=== PATIENT | male | born 1950 | race Caucasian/White ===

== ENCOUNTER 2016-04-20 11:32 | Outpatient (CLI) | payer MEDICARE ==
[~2016-04-20] VITALS: Ht 177.8 cm; Wt 90.9 kg
[~2016-04-20 11:32] MED LIST: ACET-141 PO; ASPI81TA3 PO; CARSR60 PO; CYAN500T46 PO; DIVA250T60 PO; EZET10TA3 PO; FER325 PO; FINA5TAB72 PO; FURO40TA4 PO; GABA600T PO; HYDR-902 PO; LANT3I SC; LIRA0.6P SQ; MELA3TAB51 PO; NOVO3I SC; POTA10TA37 PO; ROSU40TA PO; SIN25100 PO; TRAZ50TA18 PO; [UNRECOGNIZED DRUG - CODE] PO
[2016-04-20 11:45] VITALS: BP 120/55; PULSE 78; RESP 20; Ht 177.8 cm; Wt 90.9 kg
--- NOTE | 2016-04-20 12:10 | PN ---
Date/Time of Note Date/Time of Note DATE: 04/20/16 TIME: 12:04 Assessment/Plan Assessment/Plan Assessment/Plan [facility] Progress Note Date of Service: 04/20/16 Today's Impression & Plan: Overall doing well. No major wound problems. No major surgical issues at this time. May need further w/u for constipation (c/o lower abdominal pain). I do not see any surgical issues with regards to post cholecystectomy state and leave w/u for abdominal pain to Dr. Lambert and other colleagues. With above assessment, I've recommended the following for today: 1. F/u with Dr. Lambert 2. F/u with us prn 3. May need further w/u regarding lower abdominal discomfort Thank you again for your great care of this very pleasant patient and wonderful family. If there are any questions, please feel free to call me at [phone]. TOTAL VISIT TIME: 20 minutes of which more than half was spent in [id number] discussion with the patient, possibly including family, as well as coordination of care between multiple physicians and providers. Disclaimer: Inadvertent spelling or grammatical errors are likely due to EHR/ dictation software use and do not reflect on the overall quality of patient care. Updated Clinical Summary: The patient is a very pleasant but unfortunate 65-year-old gentleman with multiple comorbid issues (see above) who was admitted initially with failure to thrive and hyperglycemia but subsequently found to have evidence for cholecystitis. Patient was altered and we could not get consent from him but is able to get consent from a friend of his (family not making decisions for the patient). We also declared emergency consent due to the emergency nature of the clinical condition (discussed with Dr. Lambert). S/p laparoscopic cholecystectomy (modifier 22), lysis of adhesions and abdominal lavage 03/15/16. Drain d/c'd . D/c home 03/21/17. Brief readmission 03/22 - 03/24/16 primarily for pain control. Comorbidity/PHx List: 1. Acute cholecystitis 2. CVA with right hemiplegia 3. CKD stage III 4. diabetes mellitus on insulin, with complication of diabetic neuropathy 5. hypertension 6. dyslipidemia 7. BPH 8. seizure disorder 9. depression 9. psychiatric disorder 10. history of right heel ulcer 11. history of sacral wound in the past 12. anemia of chronic disease 13. Right knee surgery Subjective: No major events or complaints; no major upper/incisional abd pain; + lower abdominal discomfort (last BM 2 days ago); no n/v/d; no sob or cp; + flatus; + BM; minimal activity Objective: Vitals: See below Exam: GENERAL: On exam, the patient was sitting up in a wheelchair; well shaven; appeared to be comfortable and in no acute distress. ABDOMEN: Soft, non-tender and nondistended. Incisions are clean, dry and intact without any obvious evidence of erythema, edema, discharge, or hernia. Surgery drain site clean and well healed. There are no peritoneal signs or guarding. SKIN: Skin appears to be pink and feels warm to touch. NEUROLOGIC: Patient is awake, alert, and follows commands appropriately. Exam/Review of Systems Vital Signs Vitals Vital Signs Date Time Temp Pulse Resp B/P Pulse Ox O2 Delivery O2 Flow Rate FiO2 04/20/16 11:45 97.5 78 20 120/55 96 Room Air FAISAL MARY M.D. Apr 20, 2016 12:10
== END 2016-04-20 16:46 | disposition home or self-care (01) ==
LOC: HPC 11:32
PROVIDERS: ATTEND Transplant Surgery
DX: K81.9 Cholecystitis, unspecified (principal); I67.2 Cerebral atherosclerosis; G81.90 Hemiplegia, unspecified affecting unspecified side; E11.9 Type 2 diabetes mellitus without complications; I12.9 Hypertensive chronic kidney disease with stage 1 through stage 4 chronic kidney disease, or unspecified chronic kidney disease; N18.3 Chronic kidney disease, stage 3 (moderate); E78.5 Hyperlipidemia, unspecified; N40.0 Benign prostatic hyperplasia without lower urinary tract symptoms; G40.909 Epilepsy, unspecified, not intractable, without status epilepticus; F32.9 Major depressive disorder, single episode, unspecified; F99 Mental disorder, not otherwise specified; D64.9 Anemia, unspecified; Z79.4 Long term (current) use of insulin
CPT/HCPCS: G0463

== ENCOUNTER 2016-05-14 10:40 | Inpatient (IN) | payer MEDICARE, OTHER ==
[2016-05-14] VITALS (25 sets, daily range): BP systolic 97–129; BP diastolic 42–63; PULSE 66–87; RESP 9–27; TEMP 98.3; Ht 177.8 cm; Wt 88.3 kg
[~2016-05-14] VITALS: Ht 177.8 cm; Wt 88.3 kg
[~2016-05-14 10:40] MED LIST changes: +FINA5TAB PO; -FINA5TAB72 PO; -ROSU40TA PO; +ROSU40TA35 PO; +[UNRECOGNIZED DRUG - CODE] PO; -[UNRECOGNIZED DRUG - CODE] PO
[2016-05-14] MEDS ORDERED: SOD CHLORIDE 0.9% 1,000 ML IV STA ×2 (10:48→11:40)
[2016-05-14 11:15] LABS: BASOPHIL # 0.1 10^3/ul (0.0-0.1); BASOPHILS % 0.6 % (0.0-2.0); EOSINOPHILS % 0.1 % (0.0-7.0); HEMATOCRIT 28.8 % (42.0-52.0); HEMOGLOBIN 9.8 g/dl (14.0-18.0); LYMPHOCYTES # 0.8 10^3/ul (0.8-2.9); LYMPHOCYTES % 4.5 % (15.0-51.0); MEAN CORPUSCULAR HEMOGLOBIN 29.7 pg (29.0-33.0); MEAN CORPUSCULAR HGB CONC 34.1 g/dl (32.0-37.0); MEAN PLATELET VOLUME 10.1 fl (7.4-10.4); MONOCYTE # 0.8 10^3/ul (0.3-0.9); MONOCYTES % 4.5 % (0.0-11.0); NEUTROPHIL # 15.2 10^3/ul (1.6-7.5); NEUTROPHILS % 90.3 % (39.0-77.0); PLATELET COUNT 261 10^3/UL (140-440); RED BLOOD COUNT 3.31 10^6/ul (4.70-6.10); RED CELL DISTRIBUTION WIDTH 14.7 % (11.5-14.5); UNCORRECTED WBC 16.9 10^3/ul (4.8-10.8); WHITE BLOOD COUNT 16.9 10^3/ul (4.8-10.8)
[2016-05-14 11:19] LABS: POTASSIUM 4.8 mmol/L (3.5-5.1)
[2016-05-14 11:22] LABS: CREATININE 1.86 mg/dl (0.61-1.24)
[2016-05-14 11:23] LABS: CALCIUM 9.3 mg/dl (8.4-10.2); PHOSPHORUS 4.4 mg/dl (2.5-4.9)
[2016-05-14 11:26] LABS: CONDITION 1; LH ANALYZER COMMENTS 1
--- NOTE | 2016-05-14 11:30 | RADRPT ---
PROCEDURE: XR Chest. CLINICAL INDICATION: Hyperglycemia TECHNIQUE: Chest AP portable. COMPARISON: 03/12/2016 FINDINGS: The mediastinal structures are unremarkable. The heart is normal in size and configuration. The pu lmonary vascularity is normal. The lung ruiz are unremarkable. No consolidation is identified. The pleural spaces are unremarkable. There are multiple old healed right rib fractures. IMPRESSION: No active intrathoracic disease. RPTAT: HGDB .Rayshawn Parada MD, MD Date Time Electronically viewed and signed by .Rayshawn Parada MD, on 05/14/2016 11:30 .B/
[2016-05-14] MEDS ORDERED: INSULIN REGULAR, HUMAN 100 UNIT in SOD CHLORIDE 0.9% 99 ML IV STA ×2 (11:40)
[2016-05-14 11:48] LABS: MODE ROOM AIR; MetHgb Venous 0.9 %; Sample Type Blood venous; Venous COHb 0.3 %; Venous Fraction OxyHgb 76.5 %; Venous Total Hemglobin 5.9 g/dl
--- NOTE | 2016-05-14 11:55 | ERA ---
ER Documentation Chief Complaint Date/Time DATE: 05/14/16 TIME: 10:50 Chief Complaint SENT FROM FACILITY FOR EVAL OF HIGH BLOOD SUGAR READING HPI 65-year-old male with history of insulin-dependent diabetes mellitus type 2, CVA with right sided weakness, hypertension, seizure disorder, diabetic neuropathy, BPH, chronic kidney disease sent to the ED from [facility] for evaluation of hyperglycemia. Patient states he is compliant with insulin. Otherwise asymptomatic. Denies chest pain, palpitations, shortness of breath or cough. No abdominal pain N/V/D/C. Denies dysuria or polyuria. No headache, neck or back pain. No fevers or chills. ROS All systems reviewed and are negative except as per history of present illness. Medications Home Meds Reported Medications Ezetimibe* (Zetia*) 10 Mg Tablet, 10 MG PO HS, TAB 03/12/16 Metolazone* (Zaroxolyn*) 2.5 Mg Tab, 2.5 MG PO DAILY, TAB HOLD FOR SBP LESS THAN 110 OR HR LESS THAN 60 03/12/16 Liraglutide (Victoza 2-Devan) 0.6 Mg/0.1 Ml Pen.injctr, 1.2 MG SQ DAILY, SYR 03/12/16 Acetaminophen* (Acetaminophen*) 500 MG Extra Strength Tablet, 500 MG PO BID Y for PAIN AND OR ELEVATED TEMP, TAB 03/12/16 Trazodone Hcl* (Trazodone Hcl*) 50 Mg Tablet, 25 MG PO QHS, #30 TAB 03/12/16 Carbidopa-Levodopa* (Sinemet*) 25-100 Mg Tab, 1 TAB PO QID, TAB 03/12/16 Finasteride* (Proscar*) 5 Mg Tablet, 5 MG PO DAILY, TAB 03/12/16 Potassium Chloride* (K-Dur*) 10 Meq Tab.prt.sr, 30 MEQ PO BID, TAB 03/12/16 Insulin Aspart* (Novolog Insulin Pen*) 100 Unit/Ml Soln, 0-10 SC .SLIDING SCALE AC, EA 03/12/16 Hydrocodone/Acetaminophen ([place] 10-325 Tablet) 1 Each Tablet, 1 EACH PO Q6 Y for SEVERE PAIN LEVEL 7-10, TAB 03/12/16 Gabapentin* (Neurontin*) 600 Mg Tablet, 600 MG PO DAILY, #60 TAB 03/12/16 Melatonin (Melatin) 3 Mg Tablet, 3 MG PO QHS, TAB 03/12/16 Furosemide* (Furosemide*) 40 Mg Tablet, 40 MG PO DAILY, TAB 03/12/16 Insulin Glargine* (Lantus*) 100 Unit/Ml Soln, 60 UNIT SC DAILY, #1 VIAL 03/12/16 Ferrous Sulfate* (Ferrous Sulfate*) 325 Mg Tabec, 325 MG PO BID, TAB 03/12/16 Divalproex Sodium* (Depakote*) 250 Mg Tablet.dr, 250 MG PO BID, TAB 03/12/16 Cyanocobalamin* (Vitamin B12*) 500 Mcg Tab, 500 MCG PO DAILY, TAB 03/12/16 Rosuvastatin Calcium* (Crestor*) 40 Mg Tablet, 40 MG PO QHS, #30 TAB 03/12/16 Diltiazem Hcl* (Cardizem SR*) 60 Mg Capsr, 30 MG PO DAILY, #60 CAP 03/12/16 Aspirin* (Aspirin* Chew) 81 Mg Tab.chew, 81 MG PO DAILY, TAB.CHEW 03/12/16 Allergies Allergies: Coded Allergies: No Known Allergy (Unverified , 03/22/16) PMhx/Soc Reviewed in chart. As be HPI. History of Surgery: Yes (s/p lap sharon) Anesthesia Reaction: No Hx 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 Disorder: No Hx Respiratory Disorders: No Hx Cardiac Disorders: Yes (htn) Hx Psychiatric Problems: Yes (depression) Hx Miscellaneous Medical Probl: Yes (cva-right hemiplegia, seizures,DM) Hx Alcohol Use: No Hx Substance Use: No Hx Tobacco Use: Yes Smoking Status: Current every day smoker FmHx Mother: lung cancer. Lives in a SNF. Physical Exam Vitals Vital Signs Date Time Temp Pulse Resp B/P Pulse Ox O2 Delivery O2 Flow Rate FiO2 05/14/16 11:06 98.0 82 18 108/51 99 Room Air 05/14/16 10:45 98.0 89 18 108/51 99 Physical Exam Const: Alert, NAD Head: Atraumatic Eyes: Normal Conjunctiva ENT: Normal External Ears, Nose and Mouth. Neck: Full range of motion. Nontender. No meningismus. Resp: BS equal and clear to auscultation bilaterally Cardio: Regular rate and rhythm, no murmurs Abd: Soft, non tender, non distended. Normal bowel sounds Skin: No petechiae or rashes Back: No midline or flank tenderness Ext: No cyanosis, or edema Neur: Awake and alert. Right sided weakness. Psych: Normal Mood and Affect. Does not appear anxious or depressed. Result Diagram: 05/15/1641905/15/16419 Results 24 hrs Laboratory Tests Test 05/14/16 10:04 05/14/16 10:48 05/14/16 10:50 05/14/16 11:50 Basophils # 0.110^3/ul Basophils % 0.6% Blood Morphology Comment Eosinophils # 0.010^3/ul Eosinophils % 0.1% Hematocrit 28.8% Hemoglobin 9.8g/dl Lymphocytes # 0.810^3/ul Lymphocytes % 4.5% Mean Corpuscular Hemoglobin 29.7pg Mean Corpuscular Hemoglobin Concent 34.1g/dl Mean Corpuscular Volume 87.0fl Mean Platelet Volume 10.1fl Monocytes # 0.810^3/ul Monocytes % 4.5% Neutrophils # 15.210^3/ul Neutrophils % 90.3% Nucleated Red Blood Cells # 0.010^3/ul Nucleated Red Blood Cells % 0.0/100WBC Platelet Count 09259^3/UL Red Blood Count 3.3110^6/ul Red Cell Distribution Width 14.7% White Blood Count 16.910^3/ul Young Test N/A Anion Gap 28 Arterial Blood Date Drawn 05/14/2016 11:43:45 AM Arterial Blood Gas Puncture Site VENOUS LINE Blood Gas Modality ROOM AIR Blood Gas Notified Time 05/14/2016 11:48:15 AM Blood Gas Notified Whom Monique Blood Gas Specimen Source Blood venous Blood Gas Temperature 37.0C Blood Urea Nitrogen 40mg/dl Calcium Level 9.3mg/dl Carbon Dioxide Level 14mmol/L Carboxyhemoglobin 0.3% Chloride Level 96mmol/L Creatinine 1.86mg/dl FiO2 21.0% Glucose Level 461mg/dl Magnesium Level 2.0mg/dl Phosphorus Level 4.4mg/dl Potassium Level 4.8mmol/L Sodium Level 133mmol/L Troponin I 0.321ng/ml Venous Blood Base Excess -16.5mmol/L Venous Blood HCO3 8.0mmol/L Venous Blood Methemoglobin 0.9% Venous Blood Oxygen Saturation 77.4mmHG Venous Blood Oxyhemoglobin 76.5% Venous Blood Total Hemoglobin 5.9g/dl Venous Blood pCO2 (Temp Corrected) 15.7mmHG Venous Blood pH 7.326 Venous Blood pO2 (Temp Corrected) 45.3mmHG Bedside Glucose 447mg/dL Urine Bilirubin NEGATIVE Urine Clarity CLEAR Urine Color LT. YELLOW Urine Glucose >=1000% Urine Hemoglobin NEGATIVE Urine Ketones 15 Urine Leukocyte Esterase NEGATIVE Urine Nitrite NEGATIVE Urine Specific [place] 1.020 Urine Total Protein NEGATIVE Urine Urobilinogen 0.2 E.U./dL Urine pH 5.0 Current Medications Medications (Trade) Dose Ordered Sig/Vicky Route PRN Reason Start Time Stop Time Status Last Admin Dose Admin Sodium Chloride 1,000 ml @ 1,000 mls/hr Q1H STAT IV 05/14/16 10:48 05/14/16 15:15 DC 05/14/16 11:08 Sodium Chloride 1,000 ml @ 1,000 mls/hr Q1H STAT IV 05/14/16 11:40 05/14/16 15:16 DC 05/14/16 13:23 Insulin Human Regular/Sodium Chloride (Humulin R/NS) 100 ml @ 8 mls/hr TITRATE STAT IV 05/14/16 11:40 05/14/16 16:17 DC 05/14/16 12:30 RHYTHM STRIP INTERPRETATION: Time: 10:15. Sinus rhythm. Ventricular rate 78. No ectopy. Indication: Hyperglycemia. EKG: Time: 12:14. Sinus rhythm. Ventricular rate 76, normal KS and QRS intervals. No acute ST segment elevation or depression. No axis deviation or ectopy. EP Impression: Normal EKG IMAGING: PROCEDURE: XR Chest. CLINICAL INDICATION: Hyperglycemia TECHNIQUE: Chest AP portable. COMPARISON: 03/12/2016 FINDINGS: The mediastinal structures are unremarkable. The heart is normal in size and configuration. The pulmonary vascularity is normal. The lung ruiz are unremarkable. No consolidation is identified. The pleural spaces are unremarkable. There are multiple old healed right rib fractures. IMPRESSION: No active intrathoracic disease. RPTAT: HGDB .Rayshawn Parada MD, Date Time Electronically viewed and signed by .Rayshawn Parada MD, MD on 05/14/2016 11:30 .B/ [ ] Procedures/MDM DOCUMENTS REVIEWED: ED nurse, prior ED, prior records, SNF records. MEDICAL DECISION MAKIN-year-old male with history of insulin-dependent diabetes mellitus type 2, CVA with right sided weakness, hypertension, seizure disorder, diabetic neuropathy, BPH, chronic kidney disease sent to the ED from [facility] for evaluation of hyperglycemia. Patient presents with anion gap metabolic acidosis and hyperglycemia consistent with DKA. VPG feels a pH of 7.36 with BE -16.5. NS 1L bolus follows NS 1L/hour and insulin drip initiated as per protocol. Leukocytosis but no obvious infectious source. Endocrinology consult in in the ED by Dr Smith. Elevated troponin without acute ischemic EKG changes or chest pain of uncertain etiology. May be secondary to renal insufficiency although NSTEMI considered. Aspirin given. Decision regarding heparin administration and a cardiology consult will be deferred to the admitting physician. Admit to ICU for Insulin infusion, hydration, further evaluation and management. Counseled patient regarding diagnosis, diagnostic results and plan for admission. CALLS/CONSULTS: Time 11:50, Dr. Lambert, Recommends admission to ICU. PATIENT CARE TRANSITIONED: Time: 11: 58, Dr. Lambert. CRITICAL CARE NOTE: Treatments/Evaluations: Close monitoring and treatment of unstable vital signs, cardiorespiratory, and neurologic status, while maintaining tight balance of fluid, respiratory, and cardiac interventions. This time includes discussing the case with the patient and the patient's family. This time does not include all procedures stated elsewhere in this record. This time also includes reviewing old records, labs and radiological studies. This time includes examining and re-examining the patient. Additionally, this time also includes arranging care with admitting and consulting physicians. TOTAL CRITICAL CARE TIME: 35 minutes not including other separately reportable procedures. Departure Diagnosis: Primary Impression: Diabetic ketoacidosis associated with type 2 diabetes mellitus Qualified Code: E13.10 - Diabetic ketoacidosis without coma associated with type 2 diabetes mellitus Additional Impressions: Hyperglycemia Hemiplegia and hemiparesis following cerebral infarction affecting right dominant side Chronic kidney disease, stage III (moderate) Essential (primary) hypertension Hyperlipidemia Qualified Code: E78.5 - Hyperlipidemia, unspecified hyperlipidemia type Major depressive disorder, recurrent severe without psychotic features Elevated troponin Condition: Critical EMIGDIO CARVALHO MD May 14, 2016 11:55 (Neurontin) 600 mg DAILY PO 05/15/16 09:00 Acetaminophen/ Hydrocodone Bitart ([place] (10/325)) 1 tab Q6 PRN PO SEVERE PAIN LEVEL 7-10 05/14/16 12:30 Rosuvastatin Calcium (Crestor) 40 mg QHS PO 05/14/16 21:00 UNV Trazodone HCl (Desyrel) 25 mg QHS PO 05/14/16 21:00 UNV Tamsulosin HCl (Flomax) 0.4 mg QHS PO 05/14/16 21:00 Heparin Sodium (Porcine) (Heparin (5000 Units/0.5 ml)) 5,000 unit Q12 SC 05/14/16 12:30 05/14/16 13:23 Diagnostic Test (Pha) (Accucheck) 1 ea Q1H XX 05/14/16 12:30 IV Flush (NS 3 ml) 3 ml PER PROTOCOL IV 05/14/16 12:30 Ondansetron HCl (Zofran Inj) 4 mg Q4 PRN IV n/v 05/14/16 12:30 Acetaminophen (Tylenol Tab) 650 mg Q4H PRN PO pain 05/14/16 12:30 Morphine Sulfate (morphine) 2 mg Q4H PRN IV severe pain 05/14/16 13:00 Aspirin (Aspirin) 325 mg ONCE ONCE PO 05/14/16 14:00 05/14/16 14:01 Dextrose (D50w Syringe) 50 ml Q15M PRN IV For BS 50 or less 05/14/16 14:00 UNV Dextrose 25 ml 25 ml Q15M PRN IV BS between 50-70 05/14/16 14:00 UNV Sodium Chloride 1,000 ml @ 1,000 mls/hr Q1H IV 05/14/16 13:45 05/14/16 14:44 UNV Lactated Ringer's 1,000 ml @ 1,000 mls/hr Q1H IV 05/14/16 14:45 05/14/16 15:44 UNV Potassium Chloride 40 meq/ Sodium Chloride 1,020 ml @ 500 mls/hr Q2H3M IV 05/14/16 15:45 05/14/16 17:44 UNV Insulin Human Regular/Sodium Chloride (Humulin R/NS) 100 ml @ 0 mls/hr DKA PROTOCOL IV 05/14/16 14:00 UNV Diagnostic Test (Pha) (Accucheck) 1 ea Q1H XX 05/14/16 14:00 UNV Miscellaneous Information (* Miscellaneous Pharmacy Order) HYPOGLYCEMIA TREATMENT HYPOGLYCEM PROTOCOL PRN XX Hypoglycemia (BS < 70) 05/14/16 14:00 UNV Insulin Glargine (Lantus) 42 unit QHS SC 05/14/16 21:00 UNV Insulin Aspart (Novolog Insulin Pen) NOVOLOG *MILD* ALGORITHM WITH MEALS BEDTIME SC 05/14/16 18:00 UNV Insulin Aspart (Novolog Insulin Pen) 16 unit WITH MEALS SC 05/14/16 18:00 UNV Miscellaneous Information (* Miscellaneous Pharmacy Order) HYPOGLYCEMIA PROTOCOL w... ONCE ONCE XX 05/14/16 14:00 05/14/16 14:01 UNV Miscellaneous Information (* Miscellaneous Pharmacy Order) Discontinue Glyburide, Glipizide,... ONCE ONCE XX 05/14/16 14:00 05/14/16 14:01 UNV Miscellaneous Information (* Miscellaneous Pharmacy Order) Discontinue all previ... ONCE ONCE XX 05/14/16 14:00 05/14/16 14:01 UNV RHYTHM STRIP INTERPRETATION: Time: 10:15. Sinus rhythm. Ventricular rate 78. No ectopy. Indication: Hyperglycemia. EKG: Time: 12:14. Sinus rhythm. Ventricular rate 76, normal KS and QRS intervals. No acute ST segment elevation or depression. No axis deviation or ectopy. EP Impression: Normal EKG IMAGING: PROCEDURE: XR Chest. CLINICAL INDICATION: Hyperglycemia TECHNIQUE: Chest AP portable. COMPARISON: 03/12/2016 FINDINGS: The mediastinal structures are unremarkable. The heart is normal in size and configuration. The pulmonary vascularity is normal. The lung ruiz are unremarkable. No consolidation is identified. The pleural spaces are unremarkable. There are multiple old healed right rib fractures. IMPRESSION: No active intrathoracic disease. RPTAT: HGDB .Rayshawn Parada MD, MD Date Time Electronically viewed and signed by .Rayshawn Parada MD, on 05/14/2016 11:30 .B/ [ ] Procedures/MDM DOCUMENTS REVIEWED: ED nurse, prior ED, prior records PROCEDURES: [] ED COURSE: [] REEXAMINATION/REEVALUATION: Time:[] MEDICAL DECISION MAKIN-year-old male with history of insulin-dependent diabetes mellitus type 2, CVA with right sided weakness, hypertension, seizure disorder, diabetic neuropathy, BPH, chronic kidney disease sent to the ED from [facility] for evaluation of hyperglycemia. Counseled [patient and family] regarding diagnosis, diagnostic results and plan for admission. CALLS/CONSULTS: Time 11:50, Dr. Lambert, Recommends admission to ICU. PATIENT CARE TRANSITIONED: Time: 11: 58, Dr. Lambert. Departure Diagnosis: Primary Impression: Diabetic ketoacidosis associated with type 2 diabetes mellitus Qualified Code: E13.10 - Diabetic ketoacidosis without coma associated with type 2 diabetes mellitus Additional Impressions: Hyperglycemia Hemiplegia and hemiparesis following cerebral infarction affecting right dominant side Chronic kidney disease, stage III (moderate) Essential (primary) hypertension Hyperlipidemia Qualified Code: E78.5 - Hyperlipidemia, unspecified hyperlipidemia type Major depressive disorder, recurrent severe without psychotic features EMIGDIO CARVALHO MD May 14, 2016 11:55
[2016-05-14 11:59] LABS: ADD UMIC NO; URINE BILIRUBIN (Dip) NEGATIVE (NEGATIVE); URINE BLOOD (Dip) NEGATIVE (NEGATIVE); URINE COLOR LT. YELLOW (YELLOW); URINE GLUCOSE (Dip) >=1000 % (NEGATIVE); URINE KETONES (Dip) 15 (NEGATIVE); URINE LEUKOCYTE ESTERASE (Dip) NEGATIVE (NEGATIVE); URINE NITRITE (Dip) NEGATIVE (NEGATIVE); URINE TOTAL PROTEIN (Dip) NEGATIVE (NEGATIVE); URINE UROBILINOGEN (Dip) 0.2 E.U./dL (0.1-1.0)
[2016-05-14] MEDS ORDERED: NACL 0.9% 3 ML SYG IV SCH (12:30)
[2016-05-14] MEDS: ACCUCHECK XX SCH ×2 (12:30→13:30)
[2016-05-14] MEDS ORDERED: NS + KCL 20 MEQ 1,000 ML IV SCH (12:30)
[2016-05-14] MEDS ORDERED: ACCUCHECK XX SCH ×2 (12:30→16:00)
[2016-05-14] MEDS ORDERED: ACETAMINOPHEN 500 MG TAB PO PRN (12:30)
[2016-05-14] MEDS ORDERED: ACETAMINOPHEN 325 MG TAB PO PRN (12:30)
[2016-05-14] MEDS ORDERED: DEXTROSE 50% 50 ML SYRINGE IV PRN ×6 (12:30→18:30)
[2016-05-14] MEDS ORDERED: ONDANSETRON 4 MG INJ IV PRN (12:30)
[2016-05-14] MEDS ORDERED: INSULIN REGULAR, HUMAN 100 UNIT in SOD CHLORIDE 0.9% 99 ML IV SCH ×4 (12:30→14:00)
--- NOTE | 2016-05-14 13:09 | HP ---
DATE OF ADMISSION: 05/14/2016 REASON FOR ADMISSION: Severe hyperglycemia, DKA, rule out sepsis. HISTORY OF PRESENT ILLNESS: The patient is a 65-year-old male, very well known to me. He has history of diabetes mellitus type 2 on insulin, CVA with right hemiplegia, psychiatric disorder, vascular dementia, hypertension, seizure disorder, vertigo, diabetic neuropathy, BPH, anemia, chronic kidney disease, osteoarthritis, recently admitted to [facility] for cholecystitis. The patient overall is doing well. He does not really watch what he eats, as per nursing staff, the nurse stated that he eats a lot of sweets and does not follow a strict diet. Yesterday I received a call that the patient had episodes of hyperglycemia. I instructed to obtain laboratories, start him on IV fluids and give him insulin, but patient refused fluids and he afterwards refused to go the hospital, which we were able to control his sugars and encourage him to drink fluids. This morning again his glucose level was documented as high and we decided to send him to the hospital and patient finally agreed. Upon arrival to [facility] today, the patient 's glucose level was about 400. He also was noted to have leukocytosis with a white count of 16.9 with a neutrophil count of 90% and glucose documented at 461. Sodium was 133, chloride 96, bicarbonate of 14. He had a gap of 23. ABG was done showed a pH of 7.32, pCO2 low at 15.7, pO2 of 45, bicarbonate of 8. Patient was started on aggressive IV fluid hydration and started on insulin. Patient to be admitted to the intensive care unit with insulin drip and treatment for DKA. Upon evaluation, the patient has no specific complaints. He said he has a wound in his buttocks. I did an exam, I did not see any wound , just redness in the sacral area. The patient otherwise has no complaints. Denies any chest pain or shortness of breath, denies any fever or chills, denies any dysuria, denies any new weaknesses or numbness. Patient overall with good appetite. The patient is admitted for further care. PAST MEDICAL HISTORY: Includes CVA with right hemiplegia, anemia of chronic disease, CKD stage III, diabetes mellitus, diabetic neuropathy, hypertension, dyslipidemia, BPH, seizure disorder, depression, psychiatric disorder, history of right heel ulcer, history of sacral wound in the past, history of carotid stenosis, right-sided 60%, history of noncompliance. The patient is obese. SURGICAL HISTORY: Right knee surgery and cholecystectomy. ALLERGIES: NO KNOWN DRUG ALLERGIES. SOCIAL HISTORY: The patient is . He has no children. Currently resides at [facility]. He is a former smoker. No history of alcohol or illicit drugs. He has a sister and the decision maker is a friend, his name is Jaylan. FAMILY HISTORY: Mother at young age from lung cancer. Father from old age. REVIEW OF SYSTEMS: Limited, see above. The patient currently with no complaints. PHYSICAL EXAMINATION: VITAL SIGNS: Temperature 98, pulse 82, respirations 18, blood pressure 108/51, saturation 99% on room air. GENERAL: The patient has no acute ____, normocephalic, atraumatic. The patient is pale. HEENT: Dry mucous membranes. CARDIOVASCULAR: S1 and S2, regular rhythm. LUNGS: Clear. ABDOMEN: Soft, slightly distended, but there is no ____, negative McBurney, negative Jiang. Abdomen is otherwise soft. EXTREMITIES: There is no clubbing, cyanosis, or edema. The patient with right- sided weakness, as he has right hemiplegia. LABORATORY DATA: White count is 16.9, hemoglobin 9.8, hematocrit 29, platelets of 61, neutrophils 90%, lymphocytes 5%. Chemistry: Sodium 133, potassium 4.9, chloride 96, bicarbonate is low at 14, BUN 40, creatinine 1.86, glucose of 461, calcium 9.6, phosphorus 4.4, magnesium is 2.0. UA essentially negative. ABG as above. Chest x-ray shows no active cardiopulmonary disease. EKG is pending. ASSESSMENT AND PLAN: This is a 65-year-old male with history of cerebrovascular accident, hypertension, parkinsonism, CKD, right hemiplegia, diabetes mellitus who presented with DKA leukocytosis. 1. Diabetic ketoacidosis. The patient will be hydrated aggressively with normal saline with potassium supplements. Follow up BMP. Will consult endocrine as the patient has a history of severe hyperglycemia which is difficult to control. The patient will be admitted to the intensive care unit, will be placed on insulin drip and will monitor electrolytes closely. Check Accu-Chek q.1 hour and will follow. 2. Leukocytosis, currently there is no evidence of infectious process. This may be just reactive in nature. We will follow. 3. Cardiovascular. The patient will be placed on DVT prophylaxis. Check troponins, follow up EKG. 4. Benign prostatic hypertrophy. Continue Proscar and Flomax. Duarte to be placed to monitor urine output in the setting of DKA. 5. History of cerebrovascular accident. Continue statin, aspirin. 6. We will obtain a dietitian consult. 7. We will place the patient in an air mattress bed as he does have sacral redness. Will discuss and inform the power of salon professional regarding patient's condition and plan of care. 7. Anemia. Patient with anemia of chronic disease secondary to chronic kidney disease. Check stool for occult blood for any evidence of bleeding. 8. Psychiatric disorder. Resume all psych medications. 9. The patient will be placed on Protonix for GI prophylaxis. We will monitor condition closely. Dictated By: JENNIFER BONILLA/GILBERT Conf#: [id number] DID#: [id number]
[2016-05-14] MEDS: HEPARIN 5,000 UNIT/0.5 ML SYG SC SCH ×2 (13:23→20:39)
[2016-05-14] MEDS ORDERED: ASPIRIN 325 MG TAB PO ONE (14:00)
[2016-05-14] MEDS: CARBIDOPA/LEVODOPA (25/100) TAB PO SCH ×3 (14:04→20:22)
--- NOTE | 2016-05-14 14:04 | CONS ---
Date/Time of Note Date/Time of Note DATE: 05/14/16 TIME: 13:57 Assessment/Plan Assessment/Plan Problems: (1) Diabetic ketoacidosis associated with type 2 diabetes mellitus Status: Acute Comment: Start insulin drip and IV fluids. Monitor electrolytes. When DKA resolved will resume previous insulin dose that was moderately effective during last consulted admit which was Lantus 42 qhs and Novolog 16 qac. Will follow. Qualifiers: Qualified Code: E13.10 - Diabetic ketoacidosis without coma associated with type 2 diabetes mellitus Consultation Date/Type/Reason Admit Date/Time 05/14/2015 @ 1300 Date of Consultation: May 14, 2016 Type of Consultation: Endocrinology Reason for Consultation DKA Referring Provider: JENNIFER PHILLIPS MD Hx of Present Illness 65 y/o C M w/ h/o T2DM w/ Dneph/Dneuro, HTN, hyperlipidemia, CVA w/ residual R- sided hemiparesis, BPH, CKD stage 3, sz d/o, depression, psych dz, depression, anemia of chronic dz, and decubiti of the heel and pre-sacral region in [facility] until yesterday when his BG at nursing facility was found to be completely out of control. Too high to read. Pt. sent to ER. In ER glucose was in the 400's but pt. found to be in DKA w/ CO2 14 and AG 28, and (+) ketonuria. Pt. c/o wound on his buttock. Pt. admitted to ICU. Endo consulted. Constitutional: no complaints Eyes: no complaints ENT: no complaints Respiratory: no complaints Cardiovascular: no complaints Gastrointestinal: no complaints Genitourinary: no complaints Skin: skin lesions (on buttock) Neurologic: no complaints Past Medical History Medical History: diabetes, high cholesterol, hypertension, renal disease, other (BPH, CVA w/ R sided weakness, psych disease/depression, decubiti on sacral region and heel) Past Surgical History Past Surgical Hx: other (R knee surgery) Family History Significant Family History: cancer (lung, mother) Social History b. [place], college grad, no , pt. claims he cannot remember a career, , no children, lives at [facility] Alcohol Use: none Smoking Status: Former smoker (1 ppd x 2 y) Drug Use: none Exam/Review of Systems Vital Signs Vitals Vital Signs Date Time Temp Pulse Resp B/P Pulse Ox O2 Delivery O2 Flow Rate FiO2 05/14/16 11:06 98.0 82 18 108/51 99 Room Air Exam Constitutional: alert, obese, oriented Psych: nl mood/affect, no complaints Eyes: EOMI, PERRL, nl conjunctiva, nl lids, nl sclera ENMT: mucosa pink and moist, nl external ears & nose Neck: non-tender, supple, No bruits, No masses, No thyromegaly Respiratory: clear to auscultation, normal air movement Cardiovascular: nl pulses, regular rate and rhythm, No edema, No murmurs/extra sounds, No rub Gastrointestinal: bowel sounds, nl liver, spleen, non-tender, soft, No mass, No rebound or guarding Musculoskeletal: nl extremities to inspection Extremities: normal pulses, No clubbing, No cyanosis, No edema 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: 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0 Nucleated Red Blood Cells % 0.0 Platelet Count 261 # Red Blood Count 3.31 L Red Cell Distribution Width 14.7 H White Blood Count 16.9 #H Young Test N/A Anion Gap 28 H Arterial Blood Date Drawn 05/14/2016 11:43:45 AM Arterial Blood Gas Puncture Site VENOUS LINE Blood Gas Modality ROOM AIR Blood Gas Notified Time 05/14/2016 11:48:15 AM Blood Gas Notified Whom Monique Blood Gas Specimen Source Blood venous Blood Gas Temperature 37.0 Blood Urea Nitrogen 40 H Calcium Level 9.3 Carbon Dioxide Level 14 L Carboxyhemoglobin 0.3 Chloride Level 96 L Creatinine 1.86 H FiO2 21.0 Glucose Level 461 *H Magnesium Level 2.0 Phosphorus Level 4.4 Potassium Level 4.8 Sodium Level 133 L Troponin I 0.321 *H Venous Blood Base Excess -16.5 L Venous Blood HCO3 8.0 L Venous Blood Methemoglobin 0.9 Venous Blood Oxygen Saturation 77.4 H Venous Blood Oxyhemoglobin 76.5 Venous Blood Total Hemoglobin 5.9 Venous Blood pCO2 (Temp Corrected) 15.7 L Venous Blood pH 7.326 L Venous Blood pO2 (Temp Corrected) 45.3 H Bedside Glucose 447 *H Urine Bilirubin NEGATIVE Urine Clarity CLEAR Urine Color LT. YELLOW Urine Glucose >=1000 Urine Hemoglobin NEGATIVE Urine Ketones 15 Urine Leukocyte Esterase NEGATIVE Urine Nitrite NEGATIVE Urine Specific [place] 1.020 Urine Total Protein NEGATIVE Urine Urobilinogen 0.2 E.U./dL Urine pH 5.0 Test 05/14/16 12:29 05/14/16 13:37 Bedside Glucose 331 H 206 Medications Medications Current Medications Dextrose (D50w Syringe) 50 ml Q15M PRN IV For BS 50 or less; Start 05/14/16 at 12:30 Dextrose (D50w Syringe) 25 ml Q15M PRN IV BS between 50-70; Start 05/14/16 at 12:30 Diagnostic Test (Pha) 1 ea 1 ea Q1H XX ; Start 05/14/16 at 12:30 Potassium Chloride/Sodium Chloride (NS-KCl 20 Meq) 1,000 ml @ 120 mls/hr Q8H20M IV ; Start 05/14/16 at 12:30 Acetaminophen (Tylenol Tab) 500 mg BID PRN PO PAIN AND OR ELEVATED TEMP; Start 05/14/16 at 12:30 Aspirin (Aspirin) 81 mg DAILY PO ; Start 05/15/16 at 09:00 Carbidopa/Levodopa (Sinemet (25/ 100)) 1 tab QID PO ; Start 05/14/16 at 13:00 Cyanocobalamin (Vitamin B12) 500 mcg DAILY PO ; Start 05/15/16 at 09:00; Status UNV Divalproex Sodium (Depakote) 250 mg BID PO ; Start 05/14/16 at 21:00; Status UNV EZETIMIBE (Zetia) 10 mg HS PO ; Start 05/14/16 at 21:00; Status UNV Finasteride (Proscar) 5 mg DAILY PO ; Start 05/15/16 at 09:00; Status UNV Gabapentin (Neurontin) 600 mg DAILY PO ; Start 05/15/16 at 09:00 Acetaminophen/ Hydrocodone Bitart ([place] (10/325)) 1 tab Q6 PRN PO SEVERE PAIN LEVEL 7-10; Start 05/14/16 at 12:30 Rosuvastatin Calcium (Crestor) 40 mg QHS PO ; Start 05/14/16 at 21:00; Status UNV Trazodone HCl (Desyrel) 25 mg QHS PO ; Start 05/14/16 at 21:00; Status UNV Tamsulosin HCl (Flomax) 0.4 mg QHS PO ; Start 05/14/16 at 21:00 Heparin Sodium (Porcine) (Heparin (5000 Units/0.5 ml)) 5,000 unit Q12 SC Last administered on 05/14/16t 13:23; Admin Dose 5,000 UNIT; Start 05/14/16 at 12:30 Diagnostic Test (Pha) (Accucheck) 1 ea Q1H XX ; Start 05/14/16 at 12:30 Ondansetron HCl (Zofran Inj) 4 mg Q4 PRN IV n/v; Start 05/14/16 at 12:30 Acetaminophen (Tylenol Tab) 650 mg Q4H PRN PO pain; Start 05/14/16 at 12:30 Morphine Sulfate (morphine) 2 mg Q4H PRN IV severe pain; Start 05/14/16 at 13: 00 Aspirin (Aspirin) 325 mg ONCE ONCE PO ; Start 05/14/16 at 14:00; Stop 05/14/16 at 14:01 Dextrose (D50w Syringe) 50 ml Q15M PRN IV For BS 50 or less; Start 05/14/16 at 14:00; Status UNV Dextrose 25 ml 25 ml Q15M PRN IV BS between 50-70; Start 05/14/16 at 14:00; Status UNV Sodium Chloride 1,000 ml @ 1,000 mls/hr Q1H IV ; Start 05/14/16 at 13:45; Stop 05/14/16 at 14:44; Status UNV Lactated Ringer's 1,000 ml @ 1,000 mls/hr Q1H IV ; Start 05/14/16 at 14:45; Stop 05/14/16 at 15:44; Status UNV Potassium Chloride/Sodium Chloride (KCl/NS) 1,020 ml @ 500 mls/hr Q2H3M IV ; Start 05/14/16 at 15:45; Stop 05/14/16 at 17:44; Status UNV Diagnostic Test (Pha) (Accucheck) 1 ea Q1H XX ; Start 05/14/16 at 14:00; Status UNV Insulin Glargine (Lantus) 42 unit QHS SC ; Start 05/14/16 at 21:00; Status UNV Miscellaneous Information (* Miscellaneous Pharmacy Order) HYPOGLYCEMIA PROTOCOL w... ONCE ONCE XX ; Start 05/14/16 at 14:00; Stop 05/14/16 at 14:01; Status UNV Miscellaneous Information (* Miscellaneous Pharmacy Order) Discontinue Glyburide , Glipizide,... ONCE ONCE XX ; Start 05/14/16 at 14:00; Stop 05/14/16 at 14:01 ; Status UNV Miscellaneous Information (* Miscellaneous Pharmacy Order) Discontinue all previ... ONCE ONCE XX ; Start 05/14/16 at 14:00; Stop 05/14/16 at 14:01; Status UNV ALBINO BEVERLY MD May 14, 2016 14:04
[2016-05-14] MEDS ORDERED: SOD CHLORIDE 0.9% 1,000 ML IV SCH (15:17)
[2016-05-14] MEDS ORDERED: DEXTROSE 5%-0.45% NACL 1,000 ML IV SCH (16:00)
[2016-05-14] MEDS ORDERED: LACTATED RINGER'S 1,000 ML IV SCH (16:00)
[2016-05-14] MEDS ORDERED: GLUCAGON 1 MG INJ IM PRN (16:30)
[2016-05-14] MEDS ORDERED: GLUCOSE GEL 15 GRAM TUBE PO PRN ×2 (16:30)
[2016-05-14] MEDS ORDERED: GLUCOSE GEL 15 GRAM TUBE BUCCAL PRN (16:30)
[2016-05-14] MEDS: HYDROCODONE/APAP (10/325) TAB PO PRN (16:37)
[2016-05-14] MEDS ORDERED: POTASSIUM CHLORIDE 40 MEQ in SOD CHLORIDE 0.9% 1,000 ML IV SCH (17:00)
[2016-05-14 17:19] LABS: POTASSIUM 3.8 mmol/L (3.5-5.1)
[2016-05-14 17:21] LABS: CREATININE 1.6 mg/dl (0.61-1.24)
[2016-05-14 17:22] LABS: CALCIUM 8.8 mg/dl (8.4-10.2); MAGNESIUM 2.1 mg/dl (1.7-2.5); PHOSPHORUS 3.7 mg/dl (2.5-4.9)
[2016-05-14] MEDS: morphine 2 MG INJ IV PRN ×2 (18:17→22:58)
[2016-05-14] MEDS: traZODone 50 MG TAB PO SCH (20:21)
[2016-05-14] MEDS: ROSUVASTATIN CALCIUM 40 MG TABLET PO SCH (20:22)
[2016-05-14] MEDS: TAMSULOSIN (SR) 0.4 MG CAP PO SCH (20:22)
[2016-05-14] MEDS: DIVALPROEX (EC) 250 MG TAB PO SCH (20:22)
[2016-05-14] MEDS: EZETIMIBE 10 MG TAB PO SCH (20:22)
[2016-05-14] MEDS: INSULIN ASPART [NOVOLOG] 3 ML PEN SC SCH (20:31)
[2016-05-14] MEDS ORDERED: INSULIN GLARGINE [LANtus] 3 ML PEN SC SCH (21:00)
[2016-05-14 22:53] LABS: CREATININE 1.57 mg/dl (0.61-1.24)
[2016-05-14 22:54] LABS: CALCIUM 8.7 mg/dl (8.4-10.2)
[2016-05-15] VITALS (19 sets, daily range): BP systolic 99–147; BP diastolic 44–88; PULSE 69–82; RESP 10–21
[2016-05-15] MEDS: morphine 2 MG INJ IV PRN ×5 (04:01→22:04)
[2016-05-15 04:47] LABS: ALBUMIN 3.2 g/dl (3.3-4.9); BASOPHILS % 0.5 % (0.0-2.0); EOSINOPHILS # 0.2 10^3/ul (0.0-0.5); EOSINOPHILS % 3.3 % (0.0-7.0); HEMATOCRIT 27.7 % (42.0-52.0); HEMOGLOBIN 9.2 g/dl (14.0-18.0); LYMPHOCYTES # 1.7 10^3/ul (0.8-2.9); LYMPHOCYTES % 23.1 % (15.0-51.0); MEAN CORPUSCULAR HGB CONC 33.2 g/dl (32.0-37.0); MEAN CORPUSCULAR VOLUME 87.3 fl (82.0-101.0); MEAN PLATELET VOLUME 9.8 fl (7.4-10.4); MONOCYTE # 0.5 10^3/ul (0.3-0.9); MONOCYTES % 6.1 % (0.0-11.0); PLATELET COUNT 232 10^3/UL (140-440); RED BLOOD COUNT 3.17 10^6/ul (4.70-6.10); UNCORRECTED WBC 7.5 10^3/ul (4.8-10.8); WHITE BLOOD COUNT 7.5 10^3/ul (4.8-10.8)
[2016-05-15 04:48] LABS: POTASSIUM 4.1 mmol/L (3.5-5.1)
[2016-05-15 04:50] LABS: CREATININE 1.49 mg/dl (0.61-1.24)
[2016-05-15 04:51] LABS: ALBUMIN/GLOBULIN RATIO 1.06; CALCIUM 8.6 mg/dl (8.4-10.2); TOTAL PROTEIN 6.2 g/dl (6.1-8.1)
[2016-05-15 04:53] LABS: PHOSPHORUS 3.6 mg/dl (2.5-4.9)
[2016-05-15 05:18] LABS: CONDITION 1; LH ANALYZER COMMENTS 1
[2016-05-15 05:48] LABS: CHOL/HDL RATIO 3.5 RATIO
[2016-05-15 05:50] LABS: TROPONIN-I 0.017 ng/ml (0.00-0.12)
[2016-05-15 06:08] LABS: THYROID STIMULATING HORMONE 5.99 MIU/L (0.465-4.680)
[2016-05-15] MEDS: INSULIN ASPART [NOVOLOG] 3 ML PEN SC SCH ×7 (07:35→21:12)
[2016-05-15] MEDS: GABAPENTIN 300 MG CAP PO SCH (08:17)
[2016-05-15] MEDS: FINASTERIDE 5 MG TAB PO SCH (08:17)
[2016-05-15] MEDS: CYANOCOBALAMIN 500 MCG TAB PO SCH (08:17)
[2016-05-15] MEDS: DIVALPROEX (EC) 250 MG TAB PO SCH ×2 (08:17→21:02)
[2016-05-15] MEDS: CARBIDOPA/LEVODOPA (25/100) TAB PO SCH ×4 (08:17→21:02)
[2016-05-15] MEDS: ASPIRIN 81 MG TAB PO SCH (08:17)
[2016-05-15] MEDS: HEPARIN 5,000 UNIT/0.5 ML SYG SC SCH ×2 (08:21→21:06)
--- NOTE | 2016-05-15 12:29 | CONS ---
Date/Time of Note Date/Time of Note DATE: 05/15/16 TIME: 12:25 Assessment/Plan Assessment/Plan Problems: (1) Diabetic ketoacidosis associated with type 2 diabetes mellitus Status: Resolved Comment: DKA resolved by the time pt. reached ICU last night. Pt. resumed on previous insulin doses Qualifiers: Diabetes mellitus complication detail: without coma Qualified Code: E13.10 - Diabetic ketoacidosis without coma associated with type 2 diabetes mellitus (2) Type 2 diabetes mellitus with diabetic polyneuropathy Status: Chronic Comment: Pt. awoke this am w/ mild hypoglycemia. This was corrected. Decrease lantus from 42 to 36 tonight. Now w/ minimal appetite and glucose in normal range. Will 1-time decrease insulin from 16 to 6 units. Reevaluate tomorrow. Qualifiers: Diabetes mellitus half-way insulin use: with intermediate manager use Qualified Code : E11.42 - Type 2 diabetes mellitus with diabetic polyneuropathy, with long- term current use of insulin Consultation Date/Type/Reason Admit Date/Time May 14, 2016 at 12:27 Initial Consult Date 05/14/16 Type of Consultation: Endocrinology Reason for Consultation DKA Referring Provider: JENNIFER PHILLIPS MD 24 HR Interval Summary Constitutional: improved, no complaints Detailed Summary Respiratory: no complaints Cardiovascular: no complaints Gastrointestinal: no complaints Genitourinary: no complaints Musculoskeletal: no complaints Skin: no complaints Neurologic: no complaints Psychological: anxiety (reports he wakes up at 0500 screaming and cursing; doesn't like it and is anxious about it. ) Exam/Review of Systems Vital Signs Vitals VS - Last 72 Hours, by Label Date Time Temp Pulse Resp B/P Pulse Ox O2 Delivery O2 Flow Rate FiO2 05/15/16 10:58 97.7 75 17 135/60 98 05/15/16 09:00 70 12 133/57 97 Room Air 05/15/16 08:41 71 05/15/16 08:00 98.3 70 11 133/72 99 Room Air 05/15/16 07:00 73 10 132/58 98 Room Air 05/15/16 06:30 72 15 131/56 96 05/15/16 06:00 72 13 126/53 98 Room Air 05/15/16 05:30 69 14 121/59 96 05/15/16 05:00 80 13 129/57 99 Room Air 05/15/16 04:30 69 15 117/57 98 05/15/16 04:00 74 05/15/16 04:00 98.2 78 21 99/88 98 Room Air 05/15/16 04:00 74 05/15/16 03:30 71 16 111/45 97 05/15/16 03:00 74 16 101/44 95 Room Air 05/15/16 02:00 82 19 140/57 95 Room Air 05/15/16 01:30 74 14 112/61 99 05/15/16 01:00 81 16 123/65 96 Room Air 05/15/16 01:00 81 16 123/65 96 05/15/16 00:30 75 15 121/59 97 05/15/16 00:00 75 05/15/16 00:00 97.9 74 15 105/61 98 Room Air 05/15/16 00:00 70 05/14/16 23:30 74 19 111/55 97 05/14/16 23:00 77 14 117/51 100 Room Air 05/14/16 22:30 80 15 122/47 98 05/14/16 22:00 87 17 122/52 98 Room Air 05/14/16 21:30 87 15 104/48 99 05/14/16 20:30 87 17 129/63 100 05/14/16 20:00 98.5 77 11 116/42 99 Room Air 05/14/16 20:00 70 05/14/16 20:00 77 05/14/16 19:30 74 11 110/50 97 05/14/16 19:00 69 111/50 98 Room Air 05/14/16 18:45 70 16 98 05/14/16 18:30 66 12 109/52 97 Room Air 05/14/16 18:15 67 9 100 05/14/16 18:00 72 15 99 Room Air 05/14/16 17:45 70 18 117/47 100 05/14/16 17:30 118/54 100 05/14/16 17:15 74 111/43 94 05/14/16 17:00 71 22 100/45 97 Room Air 05/14/16 16:45 73 112/46 100 05/14/16 16:30 71 97/45 100 05/14/16 16:15 77 108/50 96 05/14/16 16:00 72 24 102/46 98 Room Air 05/14/16 16:00 72 05/14/16 15:45 79 126/62 100 05/14/16 15:30 97.8 73 110/62 100 Room Air 05/14/16 15:15 74 05/14/16 15:15 72 27 100 05/14/16 13:05 98.3 79 111/63 99 Room Air 05/14/16 11:06 98.0 82 18 108/51 99 Room Air 05/14/16 10:45 98.0 89 18 108/51 99 Vital Signs Date Time Temp Pulse Resp B/P Pulse Ox O2 Delivery O2 Flow Rate FiO2 05/15/16 10:58 97.7 75 17 135/60 98 05/15/16 09:00 Room Air Intake and Output 05/14/16 05/14/16 05/15/16 15:00 23:00 07:00 Intake Total 270 ml Output Total 750 ml 600 ml Balance -480 ml -600 ml Exam Constitutional: alert, obese, oriented Psych: nl mood/affect, no complaints Respiratory: clear to auscultation, normal air movement Cardiovascular: nl pulses, regular rate and rhythm, No edema, No murmurs/extra sounds, No rub Gastrointestinal: bowel sounds, nl liver, spleen, non-tender, soft, No mass, No rebound or guarding Musculoskeletal: nl extremities to inspection Extremities: normal pulses, No clubbing, No cyanosis, No edema 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: 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, nl mental status, nl speech, nl strength, other (pill-rolling tremor R hand) Additional Comments Bedside Glucose - 72 Hours Test 05/14/16 10:50 05/14/16 12:29 05/14/16 13:37 05/14/16 14:39 Bedside Glucose 447mg/dL (70-220) *H 331mg/dL (70-220) H 206mg/dL (70-220) 143mg/dL (70-220) Test 05/14/16 15:41 05/14/16 16:39 05/14/16 17:48 05/14/16 18:19 Bedside Glucose 83mg/dL (70-220) 71mg/dL (70-220) 45mg/dL (70-220) *L 129mg/dL (70-220) Test 05/14/16 20:30 05/15/16 04:00 05/15/16 07:47 05/15/16 11:46 Bedside Glucose 130mg/dL (70-220) 119mg/dL (70-220) 68mg/dL (70-220) L 92mg/dL (70-220) Results Result Diagram: 05/15/16 0420 05/15/16 0420 Results 24 hrs Laboratory Tests Test 05/14/16 12:29 05/14/16 13:37 05/14/16 14:39 05/14/16 15:41 Bedside Glucose 331 H 206 143 83 Test 05/14/16 16:39 05/14/16 16:40 05/14/16 17:48 05/14/16 18:19 Bedside Glucose 71 45 *L 129 Anion Gap 16 # Blood Urea Nitrogen 38 H Calcium Level 8.8 Carbon Dioxide Level 26 # Chloride Level 103 Creatinine 1.60 H Glucose Level 71 # Hemoglobin A1c 7.7 H Magnesium Level 2.1 Phosphorus Level 3.7 Potassium Level 3.8 Sodium Level 141 Test 05/14/16 20:30 05/14/16 22:20 05/15/16 04:00 05/15/16 04:20 Bedside Glucose 130 119 Anion Gap 18 H 16 Blood Urea Nitrogen 36 H 33 H Calcium Level 8.7 8.6 Carbon Dioxide Level 22 26 Chloride Level 103 105 Creatinine 1.57 H 1.49 H Glucose Level 211 # 110 # Potassium Level 4.0 4.1 Sodium Level 139 143 Alanine Aminotransferase (ALT/SGPT) 48 Albumin 3.2 L Albumin/Globulin Ratio 1.06 Alkaline Phosphatase 153 H Aspartate Amino Transf (AST/SGOT) 124 H Basophils # 0.0 Basophils % 0.5 Blood Morphology Comment Cholesterol Level 134 Cholesterol/HDL Ratio 3.5 Direct Bilirubin 0.00 Eosinophils # 0.2 Eosinophils % 3.3 Globulin 3.00 HDL Cholesterol 38 Hematocrit 27.7 L Hemoglobin 9.2 L Hemoglobin A1c 7.6 H Indirect Bilirubin 0.0 LDL Cholesterol, Calculated 70 Lactic Acid Level 2.6 H Lipase 31 Lymphocytes # 1.7 Lymphocytes % 23.1 Magnesium Level 2.0 Mean Corpuscular Hemoglobin 29.0 Mean Corpuscular Hemoglobin Concent 33.2 Mean Corpuscular Volume 87.3 Mean Platelet Volume 9.8 Monocytes # 0.5 Monocytes % 6.1 Neutrophils # 5.0 Neutrophils % 67.0 Nucleated Red Blood Cells # 0.0 Nucleated Red Blood Cells % 0.0 Phosphorus Level 3.6 Platelet Count 232 Red Blood Count 3.17 L Red Cell Distribution Width 15.0 H Thyroid Stimulating Hormone (TSH) 5.990 H Total Bilirubin 0.0 L Total Protein 6.2 Triglycerides Level 128 Troponin I 0.017 White Blood Count 7.5 # Test 05/15/16 07:47 05/15/16 11:46 Bedside Glucose 68 L 92 Medications Medications Current Medications Acetaminophen (Tylenol Tab) 500 mg BID PRN PO PAIN AND OR ELEVATED TEMP; Start 05/14/16 at 12:30 Aspirin (Aspirin) 81 mg DAILY PO Last administered on 05/15/16 08:17; Admin Dose 81 MG; Start 05/15/16 at 09:00 Carbidopa/Levodopa (Sinemet (25/ 100)) 1 tab QID PO Last administered on 12:21; Admin Dose 1 TAB; Start 05/14/16 at 13:00 Cyanocobalamin (Vitamin B12) 500 mcg DAILY PO Last administered on 05/15/16 08 :17; Admin Dose 500 MCG; Start 05/15/16 at 09:00 Divalproex Sodium (Depakote) 250 mg BID PO Last administered on 05/15/16 08:17 ; Admin Dose 250 MG; Start 05/14/16 at 21:00 EZETIMIBE (Zetia) 10 mg HS PO Last administered on 05/14/16 20:22; Admin Dose 10 MG; Start 05/14/16 at 21:00 Finasteride (Proscar) 5 mg DAILY PO Last administered on 05/15/16 08:17; Admin Dose 5 MG; Start 05/15/16 at 09:00 Gabapentin (Neurontin) 600 mg DAILY PO Last administered on 05/15/16 08:17; Admin Dose 600 MG; Start 05/15/16 at 09:00 Acetaminophen/ Hydrocodone Bitart (Edroy (10325)) 1 tab Q6 PRN PO SEVERE PAIN LEVEL 7-10 Last administered on 05/14/16 16:37; Admin Dose 1 TAB; Start at 12:30 Rosuvastatin Calcium (Crestor) 40 mg QHS PO Last administered on 05/14/16 20: 22; Admin Dose 40 MG; Start 05/14/16 at 21:00 Trazodone HCl (Desyrel) 25 mg QHS PO Last administered on 05/14/16 20:21; Admin Dose 25 MG; Start 05/14/16 at 21:00 Tamsulosin HCl (Flomax) 0.4 mg QHS PO Last administered on 05/14/16 20:22; Admin Dose 0.4 MG; Start 05/14/16 at 21:00 Heparin Sodium (Porcine) (Heparin (5000 Units/0.5 ml)) 5,000 unit Q12 SC Last administered on 05/15/16 08:21; Admin Dose 5,000 UNIT; Start 05/14/16 at 12:30 Ondansetron HCl (Zofran Inj) 4 mg Q4 PRN IV n/v; Start 05/14/16 at 12:30 Acetaminophen (Tylenol Tab) 650 mg Q4H PRN PO pain; Start 05/14/16 at 12:30 Morphine Sulfate (morphine) 2 mg Q4H PRN IV severe pain Last administered on 08:25; Admin Dose 2 MG; Start 05/14/16 at 13:00 Miscellaneous Information 1 ea NOTE XX ; Start 05/14/16 at 16:30 Glucose (Glutose) 15 gm Q15M PRN PO DECREASED GLUCOSE; Start 05/14/16 at 16:30 Glucose (Glutose) 22.5 gm Q15M PRN PO DECREASED GLUCOSE; Start 05/14/16 at 16: 30 Glucagon (Glucagen) 1 mg Q15M PRN IM DECREASED GLUCOSE; Start 05/14/16 at 16:30 Glucose (Glutose) 15 gm Q15M PRN BUCCAL DECREASED GLUCOSE; Start 05/14/16 at 16 :30 Dextrose (D50w Syringe) 25 ml Q15M PRN IV DECREASED GLUCOSE; Start 05/14/16 at 18:30 Dextrose (D50w Syringe) 50 ml Q15M PRN IV DECREASED GLUCOSE; Start 05/14/16 at 18:30 Insulin Glargine (Lantus) 36 unit QHS SC ; Start 05/15/16 at 21:00 Insulin Aspart (Novolog Insulin Pen) 6 unit ONCE ONCE SC Last administered on 05/15/16 12:20; Admin Dose 6 UNIT; Start 05/15/16 at 12:30; Stop 05/15/16 at 12 :31 ALBINO BEVERLY MD May 15, 2016 12:29
[2016-05-15] MEDS ORDERED: INSULIN ASPART [NOVOLOG] 3 ML PEN SC ONE ×2 (12:30→17:30)
--- NOTE | 2016-05-15 17:51 | PN ---
DATE: 05/15/2016 SUBJECTIVE: The patient was briefly in the intensive care unit, as he was now off the insulin drip. I appreciate Dr. Griggs's assistance with management of patient's DKA and diabetes management roland hyman. Case discussed. The patient was transferred to medical/surgical floor. Appetite is not grea t. I did discuss with nursing staff. I encouraged the patient to eat his meals. PHYSICAL EXAMINATION: VITAL SIGNS: Temperature 97.7, pulse 75, respirations 17, blood pressure 125/60, saturation 98% on room air. GENERAL: No acute distress. HEENT: Normocephalic, atraumatic. The patient is pale. CARDIOVASCULAR: S1, S2. Regular rate and rhythm. LUNGS: Clear. ABDOMEN: Soft, overweight. EXTREMITIES: No clubbing, cyanosis, or edema. NEUROLOGIC: The patient with right-sided weakness. LABORATORY DATA: Today show a normal white count of 7.5, hemoglobin 9.2, hematocrit 28, platelet co unt 32, neutrophils 67%, leukocytes 23%. Chemistry: Sodium is 143, potassium 4.1, chloride 105, bi carbonate 26, BUN is 33, creatinine 1.49, glucose 110. Hemoglobin A1c 7.6. AST 124, ALT 48, alkali ne phosphatase 153, slightly elevated. The patient clinically has no abdominal pain. Lactic acid w as slightly high at 2.6. Glucose levels are as follows 92, 68, 119, 130, 129. MEDICATIONS: Include the followin. Lantus 36 units at night. 2. Insulin aspart 6 units x1. 3. Aspirin 81 mg daily. 4. Vitamin B12 at 500 mcg daily. 5. Proscar 5 mg daily. 6. Gabapentin 600 daily. 7. Insulin aspart q.a.c. meals. 8. Depakote 250 b.i.d. 9. Zetia 10 mg at bedtime. 10. ____ mg at bedtime. 11. Trazodone 25 at bedtime. 12. Flomax 0.4 at bedtime. 13. Insulin aspart per sliding scale. 14. Hypoglycemia protocol. 15. Sinemet 25/100 4 times daily. 16. Morphine p.r.n. 17. Tylenol p.r.n. 18. [place] p.r.n. 19. Heparin 5000 units subq q.12h. 20. Zofran p.r.n. ASSESSMENT AND PLAN: This is an unfortunate 65-year-old male with history of cerebrovascu lar accident, hypertension, parkinsonism, chronic kidney disease, right hemiplegia, diabetes mellitu s who presented with diabetic ketoacidosis and leukocytosis. 1. Diabetic ketoacidosis. Anion gap closed, status post briefly on insulin drip. Was on IV fluid hydration, now off. Continue with current subcutaneous insulin per Dr. Griggs. All medications pe r Dr. Griggs as well. 2. Leukocytosis, likely stress reaction. No evidence of infectious process. The patient is afebri le. 3. Elevated LFTs. Continue to monitor. The patient with no abdominal pain. The patient with rece nt cholecystectomy. May consider ordering a liver ultrasound. 4. Benign prostatic hypertrophy on Proscar and Flomax. Monitor urine output. 5. History of cerebrovascular accident. Continue statin and aspirin. LDL is 70, which is at goal. Continue the same. 6. Anemia. The patient with anemia of chronic disease secondary to chronic kidney disease. No nee d for transfusion. 7. Psychiatric disorder. Resume all psych medications. 8. Monitor glucose level until tomorrow and hopefully we can discharge him tomorrow. I tried to ca ll the sister, Penelope, but voice message cannot accept any messages anymore. 9. I have contacted Jaylan, who is the power of claims attorney. He is aware of the patient's condition. 10. Will monitor him 1 more day to adjust his insulin and diabetic regimen with discharge planning for the a.m. We will follow. Dictated By: JENNIFER BONILLA/GILBERT Conf#: [id number] DID#: [id number]
[2016-05-15] MEDS: HYDROCODONE/APAP (10/325) TAB PO PRN (20:58)
[2016-05-15] MEDS ORDERED: INSULIN GLARGINE [LANtus] 3 ML PEN SC SCH (21:00)
[2016-05-15] MEDS: ROSUVASTATIN CALCIUM 40 MG TABLET PO SCH (21:01)
[2016-05-15] MEDS: TAMSULOSIN (SR) 0.4 MG CAP PO SCH (21:02)
[2016-05-15] MEDS: traZODone 50 MG TAB PO SCH (21:02)
[2016-05-15] MEDS: EZETIMIBE 10 MG TAB PO SCH (23:08)
[2016-05-16] MEDS: morphine 2 MG INJ IV PRN ×2 (02:13→09:17)
[2016-05-16 05:14] LABS: BASOPHILS % 0.5 % (0.0-2.0); EOSINOPHILS # 0.1 10^3/ul (0.0-0.5); EOSINOPHILS % 1.7 % (0.0-7.0); LYMPHOCYTES # 0.9 10^3/ul (0.8-2.9); LYMPHOCYTES % 14.6 % (15.0-51.0); MEAN CORPUSCULAR HEMOGLOBIN 29.4 pg (29.0-33.0); MEAN CORPUSCULAR HGB CONC 33.4 g/dl (32.0-37.0); MEAN PLATELET VOLUME 9.4 fl (7.4-10.4); MONOCYTE # 0.4 10^3/ul (0.3-0.9); MONOCYTES % 6.4 % (0.0-11.0); NEUTROPHIL # 4.9 10^3/ul (1.6-7.5); NEUTROPHILS % 76.8 % (39.0-77.0); PLATELET COUNT 216 10^3/UL (140-440); RED BLOOD COUNT 3.41 10^6/ul (4.70-6.10); RED CELL DISTRIBUTION WIDTH 14.7 % (11.5-14.5); UNCORRECTED WBC 6.4 10^3/ul (4.8-10.8); WHITE BLOOD COUNT 6.4 10^3/ul (4.8-10.8)
[2016-05-16 05:38] LABS: POTASSIUM 4.4 mmol/L (3.5-5.1)
[2016-05-16 05:39] LABS: PHOSPHORUS 3.5 mg/dl (2.5-4.9)
[2016-05-16 05:41] LABS: CREATININE 1.12 mg/dl (0.61-1.24)
[2016-05-16 05:42] LABS: CALCIUM 9.1 mg/dl (8.4-10.2)
[2016-05-16 06:07] LABS: CONDITION 1; LH ANALYZER COMMENTS 1
[2016-05-16 06:34] LABS: ALBUMIN 3.3 g/dl (3.3-4.9)
[2016-05-16 06:37] LABS: BILIRUBIN,INDIRECT 0.1 mg/dl (0-1.1); BILIRUBIN,TOTAL 0.1 mg/dl (0.2-1.3); TOTAL PROTEIN 6.4 g/dl (6.1-8.1)
[2016-05-16] MEDS: INSULIN ASPART [NOVOLOG] 3 ML PEN SC SCH ×7 (07:35→21:31)
[2016-05-16 07:54] VITALS: BP 146/65; RESP 17
[2016-05-16] MEDS: GABAPENTIN 300 MG CAP PO SCH (09:05)
[2016-05-16] MEDS: FINASTERIDE 5 MG TAB PO SCH (09:05)
[2016-05-16] MEDS: ASPIRIN 81 MG TAB PO SCH (09:05)
[2016-05-16] MEDS: DIVALPROEX (EC) 250 MG TAB PO SCH ×2 (09:06→20:51)
[2016-05-16] MEDS: CARBIDOPA/LEVODOPA (25/100) TAB PO SCH ×4 (09:06→20:51)
[2016-05-16] MEDS: CYANOCOBALAMIN 500 MCG TAB PO SCH (09:06)
[2016-05-16] MEDS: HEPARIN 5,000 UNIT/0.5 ML SYG SC SCH ×2 (09:13→20:56)
[2016-05-16] MEDS ORDERED: morphine 2 MG INJ IV STA (11:51)
[2016-05-16] MEDS ORDERED: BISACODYL (EC) 5 MG TAB PO ONE (13:00)
[2016-05-16] MEDS ORDERED: DOCUSATE SODIUM 250 MG CAP PO PRN (13:00)
[2016-05-16] MEDS: MUPIROCIN 2% 22 GM OINT TOP SCH ×2 (13:51→21:26)
[2016-05-16] MEDS: SENNA TAB PO SCH ×2 (13:51→20:52)
[2016-05-16 16:53] LABS: MICROALBUMIN 0.8 mg/dL
--- NOTE | 2016-05-16 17:02 | PN ---
DATE: 05/16/2016 SUBJECTIVE: Patient seen, noted today is elevated liver enzymes. AST went to 552, alkaline phospha tase increased to 187. Patient with no pain in the abdomen, but is complaining of rectum pain, requ esting morphine. This is not a new complaint. Patient does have history of constipation and rednes s at the sacral anal area. In addition, patient is not eating much of his meals. He is very picky with what he eats. I instructed him to hold morning dose of NovoLog because of glucose level around 70. PHYSICAL EXAMINATION: VITAL SIGNS: Temperature 98.3, pulse 77, respirations 17, blood pressure 146/65, saturation 99% on room air. GENERAL: The patient is in no acute distress. The patient is pale. CARDIOVASCULAR: S1 and S2, regular rate. LUNGS: Clear. ABDOMEN: Soft, distended, but no pain. Negative McBurney, negative Jiang. EXTREMITIES: No clubbing, cyanosis, or edema. Patient with right-sided weakness. LABORATORY DATA: White count is 6.4, hemoglobin 10, hematocrit 30, platelet count 216, neutrophils 77%, lymphocytes 15%. Chemistry: Sodium 145, potassium 4.4, chloride 107, bicarbonate 30, BUN is 2 0, creatinine 1.12, and glucose of 59 this morning. Follow-up glucose levels, most recent 154, befo re that was 80. LFTs are high, AST 562, ALT 100, and alkaline phosphatase 187. Initial troponin up on arrival to the hospital was elevated to 0.3, but right away went down to 0.017. MRSA screening t urned out to be positive as well. He is placed in isolation. He has MRSA of the nares. MEDICATIONS: 1. Lantus 28 units at bedtime. 2. Dulcolax x1, Colace 250 b.i.d. p.r.n., and senna b.i.d., which was just added. 3. Morphine 4 mg IV q.4h. p.r.n. 4. Aspirin 81 daily. 5. Vitamin B12 at 500 mcg daily. 6. Proscar 5 mg daily. 7. Neurontin 600 daily. 8. Insulin aspart 16 units q.a.c. meals 9. Depakote 250 b.i.d. 10. Zetia 10 mg at bedtime. 12. Crestor 40 mg at bedtime. 13. Trazodone 25 at bedtime. 14. Flomax 0.4 at bedtime. 15. Hypoglycemia protocol. 16. Sinemet 25/100 q.i.d. 17. Tylenol p.r.n. 18. [place] p.r.n. 19. Heparin 5000 units subq q.12h. 20. Zofran p.r.n. 21. Tylenol p.r.n. ASSESSMENT AND PLAN: This is a 65-year-old male with history of cerebrovascular accident, hypertension, parkinsonism, CKD, right hemiplegia, diabetes mellitus, who presented with diabetic k etoacidosis. 1. Diabetic ketoacidosis, resolved. 2. Diabetes mellitus. Patient not eating much, so insulin needs to be reduced. Will obtain a diet itian consult for recommendation. Case discussed with nursing staff. 3. Elevated LFTs. This may be secondary to statin. May decide to hold Crestor. Will obtain a live r ultrasound and follow up numbers. Patient is status post recent cholecystectomy. 4. Benign prostatic hypertrophy. Continue Proscar and Flomax. 5. Rectal pain may be related to constipation. Stool softeners will be given. We will prescribe c ortisone cream to the area. 6. Anemia. Patient with anemia of chronic disease. No need for transfusion. 7. Psychiatric disorder. Continue all psych medications. 8. Continue deep vein thrombosis prophylaxis and gastrointestinal prophylaxis. 9. Again, chronic pain is related likely to diabetic neuropathy and rectal pain as patient told me. DISPOSITION: Home soon pending above workup. We will follow. Dictated By: JENNIFER BONILLA/GILBERT Conf#: [id number] DID#: [id number]
--- NOTE | 2016-05-16 18:46 | RADRPT ---
PROCEDURE: US Abdomen. CLINICAL INDICATION: Elevated liver function tests. TECHNIQUE: Multiple real-time images were acquired of the patient's abdomen and retroperitoneum ut ilizing a high resolution transducer. COMPARISON: CT scan abdomen pelvis 03/14/2016. FINDINGS: The liver is enlarged measuring 19.7 cm sagittal. The common bile duct measured 6.3 cm and is unrem arkable. The hepatic and portal veins are patent. The inferior vena cava is patent. The gallbladde r was surgically removed. The pancreas is obscured by bowel gas. The right kidney is unremarkable measuring 11.8 cm in length without evidence of a solid mass or hyd ronephrosis. The left kidney and spleen are not evaluated. The abdominal aorta is not evaluate. IMPRESSION: 1. This status post cholecystectomy. 2. Hepatomegaly without evidence of intrahepatic biliary ductal dilatation. No solid or cystic hep atic mass is identified. 3. The pancreas was obscured by bowel gas and is not evaluated. RPTAT:AAJJ Physician Royce Date Time Electronically viewed and signed by Physician Royce on 05/16/2016 18:46 [email or web address]/
--- NOTE | 2016-05-16 19:16 | CONS ---
Date/Time of Note Date/Time of Note DATE: 05/16/16 TIME: 19:12 Assessment/Plan Assessment/Plan Problems: (1) Type 2 diabetes mellitus with diabetic chronic kidney disease Status: Chronic Comment: Pt. continues to refuse food and therefore for the most part has not been receiving mealtime insulin. Will reduce lantus again to 28 units tonight in an attempt to avoid hypoglycemia. Pt. did receive Novolog 16 units now but RN did not verify pt. intended to eat. At risk for hypoglycemia tonight. Will inform RN to monitor. Consultation Date/Type/Reason Admit Date/Time May 14, 2016 at 12:27 Initial Consult Date 05/14/16 Type of Consultation: Endocrinology Reason for Consultation DKA Referring Provider: JENNIFER PHILLIPS MD 24 HR Interval Summary Constitutional: no complaints Detailed Summary Respiratory: no complaints Cardiovascular: no complaints Gastrointestinal: decreased appetite, vomiting (earlier today) Genitourinary: no complaints Musculoskeletal: no complaints Neurologic: no complaints Exam/Review of Systems Vital Signs Vitals VS - Last 72 Hours, by Label Date Time Temp Pulse Resp B/P Pulse Ox O2 Delivery O2 Flow Rate FiO2 05/16/16 07:54 98.3 77 17 146/65 99 05/15/16 20:12 97.0 75 20 147/64 97 05/15/16 10:58 97.7 75 17 135/60 98 05/15/16 09:00 70 12 133/57 97 Room Air 05/15/16 08:41 71 05/15/16 08:00 98.3 70 11 133/72 99 Room Air 05/15/16 07:00 73 10 132/58 98 Room Air 05/15/16 06:30 72 15 131/56 96 05/15/16 06:00 72 13 126/53 98 Room Air 05/15/16 05:30 69 14 121/59 96 05/15/16 05:00 80 13 129/57 99 Room Air 05/15/16 04:30 69 15 117/57 98 05/15/16 04:00 74 05/15/16 04:00 98.2 78 21 99/88 98 Room Air 05/15/16 04:00 74 05/15/16 03:30 71 16 111/45 97 05/15/16 03:00 74 16 101/44 95 Room Air 05/15/16 02:00 82 19 140/57 95 Room Air 05/15/16 01:30 74 14 112/61 99 05/15/16 01:00 81 16 123/65 96 Room Air 05/15/16 01:00 81 16 123/65 96 05/15/16 00:30 75 15 121/59 97 05/15/16 00:00 75 05/15/16 00:00 97.9 74 15 105/61 98 Room Air 05/15/16 00:00 70 05/14/16 23:30 74 19 111/55 97 05/14/16 23:00 77 14 117/51 100 Room Air 05/14/16 22:30 80 15 122/47 98 05/14/16 22:00 87 17 122/52 98 Room Air 05/14/16 21:30 87 15 104/48 99 05/14/16 20:30 87 17 129/63 100 05/14/16 20:00 98.5 77 11 116/42 99 Room Air 05/14/16 20:00 70 05/14/16 20:00 77 05/14/16 19:30 74 11 110/50 97 05/14/16 19:00 69 111/50 98 Room Air 05/14/16 18:45 70 16 98 05/14/16 18:30 66 12 109/52 97 Room Air 05/14/16 18:15 67 9 100 05/14/16 18:00 72 15 99 Room Air 05/14/16 17:45 70 18 117/47 100 05/14/16 17:30 118/54 100 05/14/16 17:15 74 111/43 94 05/14/16 17:00 71 22 100/45 97 Room Air 05/14/16 16:45 73 112/46 100 05/14/16 16:30 71 97/45 100 05/14/16 16:15 77 108/50 96 05/14/16 16:00 72 24 102/46 98 Room Air 05/14/16 16:00 72 05/14/16 15:45 79 126/62 100 05/14/16 15:30 97.8 73 110/62 100 Room Air 05/14/16 15:15 74 05/14/16 15:15 72 27 100 05/14/16 13:05 98.3 79 111/63 99 Room Air 05/14/16 11:06 98.0 82 18 108/51 99 Room Air 05/14/16 10:45 98.0 89 18 108/51 99 Vital Signs Date Time Temp Pulse Resp B/P Pulse Ox O2 Delivery O2 Flow Rate FiO2 05/16/16 07:54 98.3 77 17 146/65 99 05/15/16 09:00 Room Air Intake and Output 05/15/16 05/15/16 05/16/16 15:00 23:00 07:00 Intake Total 120 ml 460 ml 240 ml Output Total 200 ml 400 ml Balance -80 ml 460 ml -160 ml Exam Constitutional: alert, obese, oriented Psych: nl mood/affect, no complaints Respiratory: clear to auscultation, normal air movement Cardiovascular: nl pulses, regular rate and rhythm, No edema, No murmurs/extra sounds, No rub Gastrointestinal: bowel sounds, nl liver, spleen, non-tender, soft, No mass, No rebound or guarding Musculoskeletal: nl extremities to inspection Extremities: normal pulses, No clubbing, No cyanosis, No edema 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: 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, nl mental status, nl speech, nl strength Additional Comments Bedside Glucose - 72 Hours Test 05/14/16 10:50 05/14/16 12:29 05/14/16 13:37 05/14/16 14:39 Bedside Glucose 447mg/dL (70-220) *H 331mg/dL (70-220) H 206mg/dL (70-220) 143mg/dL (70-220) Test 05/14/16 15:41 05/14/16 16:39 05/14/16 17:48 05/14/16 18:19 Bedside Glucose 83mg/dL (70-220) 71mg/dL (70-220) 45mg/dL (70-220) *L 129mg/dL (70-220) Test 05/14/16 20:30 05/15/16 04:00 05/15/16 07:47 05/15/16 11:46 Bedside Glucose 130mg/dL (70-220) 119mg/dL (70-220) 68mg/dL (70-220) L 92mg/dL (70-220) Test 05/15/16 15:05 05/15/16 15:36 05/15/16 15:56 05/15/16 17:16 Bedside Glucose 65mg/dL (70-220) L 62mg/dL (70-220) L 74mg/dL (70-220) 123mg/dL (70-220) Test 05/15/16 20:56 05/16/16 07:46 05/16/16 11:55 05/16/16 17:14 Bedside Glucose 209mg/dL (70-220) 80mg/dL (70-220) 154mg/dL (70-220) 144mg/dL (70-220) Results Result Diagram: 05/16/16 0419 05/16/16 0419 Results 24 hrs Laboratory Tests Test 05/15/16 20:56 05/16/16 04:19 05/16/16 07:46 05/16/16 11:55 Bedside Glucose 209 80 154 Alanine Aminotransferase (ALT/SGPT) 100 H Albumin 3.3 Alkaline Phosphatase 187 H Anion Gap 12 Aspartate Amino Transf (AST/SGOT) 552 #H Basophils # 0.0 Basophils % 0.5 Blood Morphology Comment Blood Urea Nitrogen 20 # Calcium Level 9.1 Carbon Dioxide Level 30 Chloride Level 107 Creatinine 1.12 Direct Bilirubin 0.00 Eosinophils # 0.1 Eosinophils % 1.7 Glucose Level 59 #L Hematocrit 30.0 L Hemoglobin 10.0 L Indirect Bilirubin 0.1 Lactic Acid Level 1.3 Lymphocytes # 0.9 Lymphocytes % 14.6 L Magnesium Level 2.0 Mean Corpuscular Hemoglobin 29.4 Mean Corpuscular Hemoglobin Concent 33.4 Mean Corpuscular Volume 88.0 Mean Platelet Volume 9.4 Monocytes # 0.4 Monocytes % 6.4 Neutrophils # 4.9 Neutrophils % 76.8 Nucleated Red Blood Cells # 0.0 Nucleated Red Blood Cells % 0.0 Phosphorus Level 3.5 Platelet Count 216 Potassium Level 4.4 Red Blood Count 3.41 L Red Cell Distribution Width 14.7 H Sodium Level 145 H Total Bilirubin 0.1 L Total Protein 6.4 White Blood Count 6.4 Test 05/16/16 17:14 Bedside Glucose 144 Medications Medications Current Medications Acetaminophen (Tylenol Tab) 500 mg BID PRN PO PAIN AND OR ELEVATED TEMP; Start 05/14/16 at 12:30 Aspirin (Aspirin) 81 mg DAILY PO Last administered on 05/16/16t 09:05; Admin Dose 81 MG; Start 05/15/16 at 09:00 Carbidopa/Levodopa (Sinemet (25/ 100)) 1 tab QID PO Last administered on 17:04; Admin Dose 1 TAB; Start 05/14/16 at 13:00 Cyanocobalamin (Vitamin B12) 500 mcg DAILY PO Last administered on 05/16/16 09 :06; Admin Dose 500 MCG; Start 05/15/16 at 09:00 Divalproex Sodium (Depakote) 250 mg BID PO Last administered on 05/16/16 09:06 ; Admin Dose 250 MG; Start 05/14/16 at 21:00 EZETIMIBE (Zetia) 10 mg HS PO Last administered on 05/15/16 23:08; Admin Dose 10 MG; Start 05/14/16 at 21:00 Finasteride (Proscar) 5 mg DAILY PO Last administered on 05/16/16 09:05; Admin Dose 5 MG; Start 05/15/16 at 09:00 Acetaminophen/ Hydrocodone Bitart ([place] (10/325)) 1 tab Q6 PRN PO SEVERE PAIN LEVEL 7-10 Last administered on 05/15/16 20:58; Admin Dose 1 TAB; Start at 12:30 Trazodone HCl (Desyrel) 25 mg QHS PO Last administered on 05/15/16 21:02; Admin Dose 25 MG; Start 05/14/16 at 21:00 Tamsulosin HCl (Flomax) 0.4 mg QHS PO Last administered on 05/15/16 21:02; Admin Dose 0.4 MG; Start 05/14/16 at 21:00 Heparin Sodium (Porcine) (Heparin (5000 Units/0.5 ml)) 5,000 unit Q12 SC Last administered on 05/16/16 09:13; Admin Dose 5,000 UNIT; Start 05/14/16 at 12:30 Ondansetron HCl (Zofran Inj) 4 mg Q4 PRN IV n/v Last administered on 05/16/16 17:01; Admin Dose 4 MG; Start 05/14/16 at 12:30 Acetaminophen (Tylenol Tab) 650 mg Q4H PRN PO pain; Start 05/14/16 at 12:30 Miscellaneous Information 1 ea NOTE XX ; Start 2/11/17 at 16:30 Glucose (Glutose) 15 gm Q15M PRN PO DECREASED GLUCOSE; Start 05/14/16 at 16:30 Glucose (Glutose) 22.5 gm Q15M PRN PO DECREASED GLUCOSE; Start 05/14/16 at 16: 30 Glucagon (Glucagen) 1 mg Q15M PRN IM DECREASED GLUCOSE; Start 05/14/16 at 16:30 Glucose (Glutose) 15 gm Q15M PRN BUCCAL DECREASED GLUCOSE; Start 05/14/16 at 16 :30 Dextrose (D50w Syringe) 25 ml Q15M PRN IV DECREASED GLUCOSE; Start 05/14/16 at 18:30 Dextrose (D50w Syringe) 50 ml Q15M PRN IV DECREASED GLUCOSE; Start 05/14/16 at 18:30 Insulin Glargine (Lantus) 28 unit QHS SC ; Start 05/16/16 at 21:00 Morphine Sulfate (morphine) 4 mg Q4H PRN IV severe pain (7-10/10); Start at 12:30 Docusate Sodium (Colace) 250 mg BID PRN PO CONSTIPATION; Start 05/16/16 at 13: 00 Senna (Senokot) 1 tab BID PO Last administered on 05/16/16t 13:51; Admin Dose 1 TAB; Start 05/16/16 at 13:00 Hydrocortisone (Proctozone-Hc) 1 applic HS [place] ; Start 05/16/16 at 21:00 Mupirocin (Bactroban) 1 applic BID TOP Last administered on 05/16/16t 13:51; Admin Dose 1 APPLIC; Start 05/16/16 at 13:00 Gabapentin (Neurontin) 400 mg BID PO ; Start 05/16/16 at 21:00 ALBINO BEVERLY MD May 16, 2016 19:16
[2016-05-16 19:45] VITALS: BP 157/70; RESP 21
[2016-05-16] MEDS: TAMSULOSIN (SR) 0.4 MG CAP PO SCH (20:51)
[2016-05-16] MEDS: GABAPENTIN 400 MG CAP PO SCH (20:52)
[2016-05-16] MEDS: traZODone 50 MG TAB PO SCH (20:52)
[2016-05-16] MEDS: EZETIMIBE 10 MG TAB PO SCH (20:52)
[2016-05-16] MEDS ORDERED: GABAPENTIN 300 MG CAP PO SCH (21:00)
[2016-05-16] MEDS: HYDROCORTISONE 2.5% 30 GM RECT CR PR SCH (21:25)
[2016-05-16] MEDS: INSULIN GLARGINE [LANtus] 3 ML PEN SC SCH (21:30)
[2016-05-17 05:02] LABS: BASOPHILS % 0.2 % (0.0-2.0); EOSINOPHILS % 0.5 % (0.0-7.0); HEMATOCRIT 33.5 % (42.0-52.0); HEMOGLOBIN 11.2 g/dl (14.0-18.0); LYMPHOCYTES # 0.6 10^3/ul (0.8-2.9); LYMPHOCYTES % 6.6 % (15.0-51.0); MEAN CORPUSCULAR HEMOGLOBIN 28.9 pg (29.0-33.0); MEAN CORPUSCULAR HGB CONC 33.5 g/dl (32.0-37.0); MEAN CORPUSCULAR VOLUME 86.3 fl (82.0-101.0); MEAN PLATELET VOLUME 9.5 fl (7.4-10.4); MONOCYTE # 0.4 10^3/ul (0.3-0.9); MONOCYTES % 3.8 % (0.0-11.0); NEUTROPHIL # 8.4 10^3/ul (1.6-7.5); NEUTROPHILS % 88.9 % (39.0-77.0); PLATELET COUNT 213 10^3/UL (140-440); RED BLOOD COUNT 3.88 10^6/ul (4.70-6.10); RED CELL DISTRIBUTION WIDTH 14.6 % (11.5-14.5); UNCORRECTED WBC 9.4 10^3/ul (4.8-10.8); WHITE BLOOD COUNT 9.4 10^3/ul (4.8-10.8)
[2016-05-17 05:05] LABS: CONDITION 1; LH ANALYZER COMMENTS 1
[2016-05-17 05:35] LABS: MAGNESIUM 1.8 mg/dl (1.7-2.5); PHOSPHORUS 2.9 mg/dl (2.5-4.9)
[2016-05-17 05:42] LABS: ALBUMIN 3.8 g/dl (3.3-4.9); POTASSIUM 4.4 mmol/L (3.5-5.1)
[2016-05-17 05:44] LABS: CREATININE 1.12 mg/dl (0.61-1.24)
[2016-05-17 05:45] LABS: ALBUMIN/GLOBULIN RATIO 1.02; BILIRUBIN,INDIRECT 0.2 mg/dl (0-1.1); BILIRUBIN,TOTAL 0.2 mg/dl (0.2-1.3); CALCIUM 9.6 mg/dl (8.4-10.2); TOTAL PROTEIN 7.5 g/dl (6.1-8.1)
[2016-05-17 07:58] VITALS: BP 140/63; RESP 19
[2016-05-17] MEDS: INSULIN ASPART [NOVOLOG] 3 ML PEN SC SCH ×7 (08:00→21:00)
[2016-05-17] MEDS: CARBIDOPA/LEVODOPA (25/100) TAB PO SCH ×4 (08:24→21:11)
[2016-05-17] MEDS: ASPIRIN 81 MG TAB PO SCH (08:24)
[2016-05-17] MEDS: DIVALPROEX (EC) 250 MG TAB PO SCH ×2 (08:24→21:17)
[2016-05-17] MEDS: GABAPENTIN 400 MG CAP PO SCH ×2 (08:25→21:11)
[2016-05-17] MEDS: SENNA TAB PO SCH ×2 (08:25→21:11)
[2016-05-17] MEDS: MUPIROCIN 2% 22 GM OINT TOP SCH ×2 (08:25→21:14)
[2016-05-17] MEDS: HYDROCODONE/APAP (10/325) TAB PO PRN ×2 (08:25→20:12)
[2016-05-17] MEDS: FINASTERIDE 5 MG TAB PO SCH (08:25)
[2016-05-17] MEDS: CYANOCOBALAMIN 500 MCG TAB PO SCH (08:25)
[2016-05-17] MEDS: HEPARIN 5,000 UNIT/0.5 ML SYG SC SCH ×2 (08:26→21:13)
--- NOTE | 2016-05-17 14:01 | CONS ---
Date/Time of Note Date/Time of Note DATE: 05/17/16 TIME: 13:58 Assessment/Plan Assessment/Plan Problems: (1) Type 2 diabetes mellitus with diabetic polyneuropathy Status: Chronic Comment: DM markedly improved. Glucose levels controlled w/o hypoglycemia or hyperglycemia while eating Qualifiers: Diabetes mellitus senior living insulin use: with senior living use Qualified Code : E11.42 - Type 2 diabetes mellitus with diabetic polyneuropathy, with long- term current use of insulin Consultation Date/Type/Reason Admit Date/Time May 14, 2016 at 12:27 Initial Consult Date 05/14/16 Type of Consultation: Endocrinology Reason for Consultation DKA Referring Provider: JENNIFER PHILLIPS MD 24 HR Interval Summary Constitutional: improved, no complaints Detailed Summary Respiratory: no complaints Cardiovascular: no complaints Gastrointestinal: no complaints, No decreased appetite, No vomiting Genitourinary: no complaints Musculoskeletal: no complaints Neurologic: no complaints Exam/Review of Systems Vital Signs Vitals VS - Last 72 Hours, by Label Date Time Temp Pulse Resp B/P Pulse Ox O2 Delivery O2 Flow Rate FiO2 05/17/16 07:58 99.9 86 19 140/63 96 05/16/16 19:45 97.6 66 21 157/70 96 05/16/16 07:54 98.3 77 17 146/65 99 05/15/16 20:12 97.0 75 20 147/64 97 05/15/16 10:58 97.7 75 17 135/60 98 05/15/16 09:00 70 12 133/57 97 Room Air 05/15/16 08:41 71 05/15/16 08:00 98.3 70 11 133/72 99 Room Air 05/15/16 07:00 73 10 132/58 98 Room Air 05/15/16 06:30 72 15 131/56 96 05/15/16 06:00 72 13 126/53 98 Room Air 05/15/16 05:30 69 14 121/59 96 05/15/16 05:00 80 13 129/57 99 Room Air 05/15/16 04:30 69 15 117/57 98 05/15/16 04:00 74 05/15/16 04:00 98.2 78 21 99/88 98 Room Air 05/15/16 04:00 74 05/15/16 03:30 71 16 111/45 97 05/15/16 03:00 74 16 101/44 95 Room Air 05/15/16 02:00 82 19 140/57 95 Room Air 05/15/16 01:30 74 14 112/61 99 05/15/16 01:00 81 16 123/65 96 Room Air 05/15/16 01:00 81 16 123/65 96 05/15/16 00:30 75 15 121/59 97 05/15/16 00:00 75 05/15/16 00:00 97.9 74 15 105/61 98 Room Air 05/15/16 00:00 70 05/14/16 23:30 74 19 111/55 97 05/14/16 23:00 77 14 117/51 100 Room Air 05/14/16 22:30 80 15 122/47 98 05/14/16 22:00 87 17 122/52 98 Room Air 05/14/16 21:30 87 15 104/48 99 05/14/16 20:30 87 17 129/63 100 05/14/16 20:00 98.5 77 11 116/42 99 Room Air 05/14/16 20:00 70 05/14/16 20:00 77 05/14/16 19:30 74 11 110/50 97 05/14/16 19:00 69 111/50 98 Room Air 05/14/16 18:45 70 16 98 05/14/16 18:30 66 12 109/52 97 Room Air 05/14/16 18:15 67 9 100 05/14/16 18:00 72 15 99 Room Air 05/14/16 17:45 70 18 117/47 100 05/14/16 17:30 118/54 100 05/14/16 17:15 74 111/43 94 05/14/16 17:00 71 22 100/45 97 Room Air 05/14/16 16:45 73 112/46 100 05/14/16 16:30 71 97/45 100 05/14/16 16:15 77 108/50 96 05/14/16 16:00 72 24 102/46 98 Room Air 05/14/16 16:00 72 05/14/16 15:45 79 126/62 100 05/14/16 15:30 97.8 73 110/62 100 Room Air 05/14/16 15:15 74 05/14/16 15:15 72 27 100 Vital Signs Date Time Temp Pulse Resp B/P Pulse Ox O2 Delivery O2 Flow Rate FiO2 05/17/16 07:58 99.9 86 19 140/63 96 05/15/16 09:00 Room Air Intake and Output 05/16/16 05/16/16 05/17/16 15:00 23:00 07:00 Intake Total 720 ml 720 ml Output Total 900 ml 520 ml Balance -180 ml 200 ml Exam Constitutional: alert, obese, oriented Psych: nl mood/affect, no complaints Respiratory: clear to auscultation, normal air movement Cardiovascular: nl pulses, regular rate and rhythm, No edema, No murmurs/extra sounds, No rub Gastrointestinal: bowel sounds, nl liver, spleen, non-tender, soft, No mass, No rebound or guarding Musculoskeletal: nl extremities to inspection Extremities: normal pulses, No clubbing, No cyanosis, No edema 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: TEST ENG II-XII intact, nl mental status, nl speech, nl strength Additional Comments Bedside Glucose - 72 Hours Test 05/14/16 14:39 05/14/16 15:41 05/14/16 16:39 05/14/16 17:48 Bedside Glucose 143mg/dL (70-220) 83mg/dL (70-220) 71mg/dL (70-220) 45mg/dL (70-220) *L Test 05/14/16 18:19 05/14/16 20:30 05/15/16 04:00 05/15/16 07:47 Bedside Glucose 129mg/dL (70-220) 130mg/dL (70-220) 119mg/dL (70-220) 68mg/dL (70-220) L Test 05/15/16 11:46 05/15/16 15:05 05/15/16 15:36 05/15/16 15:56 Bedside Glucose 92mg/dL (70-220) 65mg/dL (70-220) L 62mg/dL (70-220) L 74mg/dL (70-220) Test 05/15/16 17:16 05/15/16 20:56 05/16/16 07:46 05/16/16 11:55 Bedside Glucose 123mg/dL (70-220) 209mg/dL (70-220) 80mg/dL (70-220) 154mg/dL (70-220) Test 05/16/16 17:14 05/16/16 21:20 05/17/16 07:50 05/17/16 12:14 Bedside Glucose 144mg/dL (70-220) 196mg/dL (70-220) 105mg/dL (70-220) 125mg/dL (70-220) Results Result Diagram: 05/17/16 0420 05/17/16 0420 Results 24 hrs Laboratory Tests Test 05/16/16 17:14 05/16/16 21:20 05/17/16 04:20 05/17/16 07:50 Bedside Glucose 144 196 105 Alanine Aminotransferase (ALT/SGPT) 257 H Albumin 3.8 Albumin/Globulin Ratio 1.02 Alkaline Phosphatase 340 #H Anion Gap 15 Aspartate Amino Transf (AST/SGOT) 818 H Basophils # 0.0 Basophils % 0.2 Blood Morphology Comment Blood Urea Nitrogen 14 Calcium Level 9.6 Carbon Dioxide Level 31 Chloride Level 101 Creatinine 1.12 Direct Bilirubin 0.00 Eosinophils # 0.0 Eosinophils % 0.5 Gamma Glutamyl Transpeptidase 1252 H Globulin 3.70 H Glucose Level 94 Hematocrit 33.5 L Hemoglobin 11.2 L Indirect Bilirubin 0.2 Lymphocytes # 0.6 L Lymphocytes % 6.6 L Magnesium Level 1.8 Mean Corpuscular Hemoglobin 28.9 L Mean Corpuscular Hemoglobin Concent 33.5 Mean Corpuscular Volume 86.3 Mean Platelet Volume 9.5 Monocytes # 0.4 Monocytes % 3.8 Neutrophils # 8.4 H Neutrophils % 88.9 H Nucleated Red Blood Cells # 0.0 Nucleated Red Blood Cells % 0.0 Phosphorus Level 2.9 Platelet Count 213 Potassium Level 4.4 Red Blood Count 3.88 L Red Cell Distribution Width 14.6 H Sodium Level 143 Total Bilirubin 0.2 Total Protein 7.5 # White Blood Count 9.4 # Test 05/17/16 12:14 Bedside Glucose 125 Medications Medications Current Medications Acetaminophen (Tylenol Tab) 500 mg BID PRN PO PAIN AND OR ELEVATED TEMP; Start 05/14/16 at 12:30 Aspirin (Aspirin) 81 mg DAILY PO Last administered on 05/17/16 08:24; Admin Dose 81 MG; Start 05/15/16 at 09:00 Carbidopa/Levodopa (Sinemet (25/ 100)) 1 tab QID PO Last administered on 12:25; Admin Dose 1 TAB; Start 05/14/16 at 13:00 Cyanocobalamin (Vitamin B12) 500 mcg DAILY PO Last administered on 05/17/16 08 :25; Admin Dose 500 MCG; Start 05/15/16 at 09:00 Divalproex Sodium (Depakote) 250 mg BID PO Last administered on 05/17/16 08:24 ; Admin Dose 250 MG; Start 05/14/16 at 21:00 EZETIMIBE (Zetia) 10 mg HS PO Last administered on 05/16/16 20:52; Admin Dose 10 MG; Start 05/14/16 at 21:00 Finasteride (Proscar) 5 mg DAILY PO Last administered on 05/17/16 08:25; Admin Dose 5 MG; Start 05/15/16 at 09:00 Acetaminophen/ Hydrocodone Bitart ([place] (10/325)) 1 tab Q6 PRN PO SEVERE PAIN LEVEL 7-10 Last administered on 05/17/16 08:25; Admin Dose 1 TAB; Start at 12:30 Trazodone HCl (Desyrel) 25 mg QHS PO Last administered on 05/16/16 20:52; Admin Dose 25 MG; Start 05/14/16 at 21:00 Tamsulosin HCl (Flomax) 0.4 mg QHS PO Last administered on 05/16/16 20:51; Admin Dose 0.4 MG; Start 05/14/16 at 21:00 Heparin Sodium (Porcine) (Heparin (5000 Units/0.5 ml)) 5,000 unit Q12 SC Last administered on 05/17/16 08:26; Admin Dose 5,000 UNIT; Start 05/14/16 at 12:30 Ondansetron HCl (Zofran Inj) 4 mg Q4 PRN IV n/v Last administered on 05/16/16 17:01; Admin Dose 4 MG; Start 05/14/16 at 12:30 Acetaminophen (Tylenol Tab) 650 mg Q4H PRN PO pain Last administered on 12:25; Admin Dose 650 MG; Start 05/14/16 at 12:30 Miscellaneous Information 1 ea NOTE XX ; Start 05/14/16 at 16:30 Glucose (Glutose) 15 gm Q15M PRN PO DECREASED GLUCOSE; Start 05/14/16 at 16:30 Glucose (Glutose) 22.5 gm Q15M PRN PO DECREASED GLUCOSE; Start 05/14/16 at 16: 30 Glucagon (Glucagen) 1 mg Q15M PRN IM DECREASED GLUCOSE; Start 05/14/16 at 16:30 Glucose (Glutose) 15 gm Q15M PRN BUCCAL DECREASED GLUCOSE; Start 05/14/16 at 16 :30 Dextrose (D50w Syringe) 25 ml Q15M PRN IV DECREASED GLUCOSE; Start 05/14/16 at 18:30 Dextrose (D50w Syringe) 50 ml Q15M PRN IV DECREASED GLUCOSE; Start 05/14/16 at 18:30 Insulin Glargine (Lantus) 28 unit QHS SC Last administered on 05/16/16 21:30; Admin Dose 28 UNIT; Start 05/16/16 at 21:00 Morphine Sulfate (morphine) 4 mg Q4H PRN IV severe pain (7-10/10); Start at 12:30 Docusate Sodium (Colace) 250 mg BID PRN PO CONSTIPATION; Start 05/16/16 at 13: 00 Senna (Senokot) 1 tab BID PO Last administered on 05/17/16 08:25; Admin Dose 1 TAB; Start 05/16/16 at 13:00 Hydrocortisone (Proctozone-Hc) 1 applic HS [place] Last administered on 05/16/16 21 :25; Admin Dose 1 APPLIC; Start 05/16/16 at 21:00 Mupirocin (Bactroban) 1 applic BID TOP Last administered on 05/17/16 08:25; Admin Dose 1 APPLIC; Start 05/16/16 at 13:00 Gabapentin (Neurontin) 400 mg BID PO Last administered on 05/17/16 08:25; Admin Dose 400 MG; Start 05/16/16 at 21:00 ALBINO BEVERLY MD May 17, 2016 14:01
--- NOTE | 2016-05-17 14:21 | PN ---
DATE: 05/17/2016 SUBJECTIVE: Patient seen with no specific complaints. Again, the patient is a poor historian. Not ed this morning temperature of 99.9 and increased liver enzymes, unclear etiology. I did stop the p atient's Crestor yesterday. PHYSICAL EXAMINATION: VITAL SIGNS: Temperature is 99.9, pulse 86, respirations 19, blood pressure 140/63, saturation 96%. GENERAL: No acute distress. HEENT: Normocephalic, atraumatic. The patient is pale. CARDIOVASCULAR: S1, S2, regular rate. LUNGS: Clear. ABDOMEN: Soft, distended. No hepatosplenomegaly. Negative McBurney, negative Jiang. EXTREMITIES: No clubbing, cyanosis, or edema. The patient arrived with right-sided weakness. LABORATORY DATA: White count 9.4, hemoglobin 11.2, hematocrit 34, platelets 213, neutrophils 89%, l ymphocytes 7%. Chemistry: Sodium is 143, potassium 4.4, chloride 101, bicarbonate 31, BUN is 14, c reatinine 1.12, glucose 94, glucose level 125, 105, overall good glycemic control. LABORATORY DATA: GGT is remarkably high at 1252, AST 18, ALT 257, alkaline phosphatase of 340. TS H was 5.9. MRSA screening of the nares positive. Liver ultrasound shows status post cholecystectom y, hepatomegaly without evidence of intrahepatic biliary ductal dilatation, also a little cystic h epatic mass is identified. The pancreas was obscured by bowel gas and is not evaluated. MEDICATIONS: 1. Insulin aspart 10 units before meals. 2. Lantus 28 at night. 3. Hydrocortisone per rectum at bedtime. 4. Neurontin 400 b.i.d. 5. Colace 250 b.i.d. 6. Senna 1 tab b.i.d. 7. Bactroban ointment b.i.d. to the nares. 8. Morphine p.r.n. 9. Aspirin 81 mg daily. 10. Vitamin B12 500 mL daily. 11. Proscar 5 mg daily. 12. Depakote 250 b.i.d. 13. Zetia 10 mg at bedtime. 14. Trazodone 25 at bedtime. 15. Flomax 0.4 at bedtime. 16. Insulin aspart per sliding scale hypoglycemia protocol. 17. Carbidopa/levodopa 25/100 q.i.d. 14. Tylenol p.r.n. 15. [place] p.r.n. 16. Heparin 5000 subcu q.12. 17. Zofran p.r.n. 18. Tylenol p.r.n. ASSESSMENT AND PLAN: This is a 65-year-old male with history of cerebrovascular accident, hypertension, parkinsonism, CKD, right hemiplegia, diabetes mellitus, who presented with diabetic k etoacidosis. 1. Diabetic ketoacidosis, resolved. 2. Diabetes mellitus. Patient's appetite is not great, so insulin has been reduced. I appreciate Dr. Griggs's input. 3. Elevated liver enzymes, etiology may be from a statin. I did stop the patient's Crestor. Will continue to follow with liver ultrasound, nondiagnostic. We will consult with GI for further recomm endations. 4. Benign prostatic hypertrophy. Continue Proscar and Flomax. 5. Rectal pain related to constipation and proctitis. Continue cortisone cream. 6. Anemia. H and H is stable. 7. Psychiatric disorder. Resume all psych medications. 8. Continue deep vein thrombosis prophylaxis and gastrointestinal prophylaxis. We will follow. 9. Low grade fever with positive MRSA of the nares. Will continue to monitor. Currently, I do not see an indication for antibiotics. Source is not clear. Will continue to monitor. We will pancul ture him if higher temperatures. We will follow. Dictated By: JENNIFER BONILLA/GILBERT Conf#: [id number] DID#: [id number]
[2016-05-17] MEDS: morphine 4 MG/ML VIAL IV PRN ×2 (17:11→23:28)
[2016-05-17 19:46] VITALS: BP 130/62; RESP 20
[2016-05-17] MEDS: EZETIMIBE 10 MG TAB PO SCH (21:10)
[2016-05-17] MEDS: traZODone 50 MG TAB PO SCH (21:11)
[2016-05-17] MEDS: HYDROCORTISONE 2.5% 30 GM RECT CR PR SCH (21:13)
[2016-05-17] MEDS: TAMSULOSIN (SR) 0.4 MG CAP PO SCH (21:17)
[2016-05-17] MEDS: INSULIN GLARGINE [LANtus] 3 ML PEN SC SCH (21:26)
[2016-05-18 05:33] LABS: BASOPHILS % 0.5 % (0.0-2.0); EOSINOPHILS % 0.3 % (0.0-7.0); HEMOGLOBIN 9.6 g/dl (14.0-18.0); LYMPHOCYTES # 1.1 10^3/ul (0.8-2.9); LYMPHOCYTES % 16.7 % (15.0-51.0); MEAN CORPUSCULAR HEMOGLOBIN 29.2 pg (29.0-33.0); MEAN CORPUSCULAR HGB CONC 33.2 g/dl (32.0-37.0); MEAN CORPUSCULAR VOLUME 87.9 fl (82.0-101.0); MEAN PLATELET VOLUME 10.2 fl (7.4-10.4); MONOCYTE # 0.6 10^3/ul (0.3-0.9); MONOCYTES % 8.5 % (0.0-11.0); NEUTROPHIL # 4.8 10^3/ul (1.6-7.5); PLATELET COUNT 165 10^3/UL (140-440); UNCORRECTED WBC 6.5 10^3/ul (4.8-10.8); WHITE BLOOD COUNT 6.5 10^3/ul (4.8-10.8)
[2016-05-18 05:38] LABS: INR 1.07; PROTIME 13.9 Sec (12.2-14.2); PT RATIO 1.1
[2016-05-18 05:41] LABS: CONDITION 1; LH ANALYZER COMMENTS 1
[2016-05-18 05:51] LABS: MAGNESIUM 1.8 mg/dl (1.7-2.5); PHOSPHORUS 3.7 mg/dl (2.5-4.9)
[2016-05-18 06:00] LABS: BILIRUBIN,INDIRECT 0.3 mg/dl (0-1.1); BILIRUBIN,TOTAL 0.3 mg/dl (0.2-1.3); CALCIUM 8.9 mg/dl (8.4-10.2); CREATININE 1.42 mg/dl (0.61-1.24); POTASSIUM 5.1 mmol/L (3.5-5.1)
[2016-05-18 07:36] VITALS: BP 124/59; RESP 18
[2016-05-18] MEDS: INSULIN ASPART [NOVOLOG] 3 ML PEN SC SCH ×6 (08:12→17:25)
[2016-05-18] MEDS: CYANOCOBALAMIN 500 MCG TAB PO SCH (09:15)
[2016-05-18] MEDS: MUPIROCIN 2% 22 GM OINT TOP SCH (09:15)
[2016-05-18] MEDS: ASPIRIN 81 MG TAB PO SCH (09:15)
[2016-05-18] MEDS: CARBIDOPA/LEVODOPA (25/100) TAB PO SCH ×3 (09:15→17:18)
[2016-05-18] MEDS: DIVALPROEX (EC) 250 MG TAB PO SCH (09:15)
[2016-05-18] MEDS: GABAPENTIN 400 MG CAP PO SCH (09:15)
[2016-05-18] MEDS: FINASTERIDE 5 MG TAB PO SCH (09:15)
[2016-05-18] MEDS: SENNA TAB PO SCH (09:15)
[2016-05-18] MEDS: HEPARIN 5,000 UNIT/0.5 ML SYG SC SCH (09:16)
--- NOTE | 2016-05-18 13:48 | PDOCDIS ---
Discharge Instructions CONDITION Patient Condition: Stable HOME CARE INSTRUCTIONS: Special Diet: Carb Control ACTIVITY: Activity Restrictions: Slowly Increase Activity FOLLOW UP/APPOINTMENTS Appointments see reconciliation, transfer to [place] JENNIFER Barrett MD May 18, 2016 13:48
--- NOTE | 2016-05-18 15:06 | DS ---
DATE OF ADMISSION: 05/14/2016 DATE OF DISCHARGE: 05/18/2016 REASON FOR ADMISSION: Diabetic ketoacidosis, rule out sepsis. HOSPITAL COURSE: The patient is a 65-year-old male, very well known to me with history of diabetes mellitus type 2 on insulin, CVA with right hemiplegia, psychiatric disorder, vascular reba ntia, hypertension and seizure disorder, vertigo, diabetic neuropathy, BPH, anemia, CKD, osteoarthri tis who was admitted recently to [facility] for cholecystitis. The patient was not ed in the facility to have high sugars and multiple reads. Despite giving him insulin this continued on. We decided ultimately to send him to the hospital and patient refused IV hydration at the [facility]. Upon arrival to the hospital he was found to be in mild DKA. The patient was started on aggre ssive fluid hydration with normal saline, which was later switched to D5. I consulted Dr. Griggs, the patient was placed briefly on insulin drip and was able to be off of it quite fast as patient's glucose level was then under control. Patient initially appetite was not very good, so we had to re duce patient's insulin regimen. It appears that at the facility patient eats a lot of snacks as he admits eating Snickers and multiple other snacks. The patient and during his stay noted to have power denly elevated liver enzymes, quite remarkably high. A hepatitis panel was ordered and hepatitis C antibody came back as positive, all suggestive of hepatitis C. Currently, the patient is asymptomati c. We will refer him to a court administrator as an outpatient basis. In the meantime, liver enzymes impr chase significantly, and is trending back down. We can follow that as patient is currently asymptomat ic and doing well. I appreciate Dr. Griggs's assistance with patient's diabetes management. DISCHARGE MEDICATIONS: He will be discharged with the following medications: 1. [place] 10/325 q.6h. p.r.n. 2. Will discontinue with the Tylenol because I wanted not to exceed 2 grams of Tylenol per day. 3. Aspirin 81 mg daily. 4. Vitamin B12 500 mcg daily. 5. Depakote 250 b.i.d. 6. Colace 250 b.i.d. as needed. 7. Zetia 10 mg at bedtime. I did stop the patient's Crestor. 8. Finasteride 5 mg daily. 9. Gabapentin 400 mg b.i.d. 10. Proctozone application at bedtime. 11. Insulin aspart per sliding scale. 12. Insulin aspart 10 units before meals. 13. Lantus 32 units at bedtime. 14. Carbidopa/levodopa 25/100 q.i.d. treatment of hypoglycemia. 15. Bactroban ointment b.i.d. to the nares. Patient positive for MRSA of the nares. 16. Zofran 4 mg p.o. q.4 p.r.n. 17. Senna 1 tab b.i.d. 18. Flomax 0.4 at bedtime. 19. Trazodone 25 mg at bedtime. 20. Ferrous sulfate 325 mg daily. Will resume Lasix at 40 mg daily. 21. Melatonin 3 mg at bedtime. 22. May resume Victoza in the future. We will follow sugar levels. FINAL DIAGNOSES: 1. Diabetes ketoacidosis. 2. Dehydration. 3. Acute renal failure. 4. Anemia of chronic disease. 5. History of iron deficiency anemia. 6. Transaminitis. 7. New diagnosis of hepatitis C. 8. Poor compliance. 9. Cerebrovascular accident with right hemiplegia. 10. Vascular dementia. 11. History of carotid stenosis. 12. Diabetes mellitus. 13. Diabetic neuropathy. 14. Constipation. 15. Proctitis. 16. Seizure disorder. 17. Benign prostatic hypertrophy. 18. Depression. 19. Psychiatric disorder. CONDITION ON DISCHARGE: Patient discharged in fair condition back to who will follow him the re closely. Dietitian to follow regarding diet and will refer to GI consultation. DIAGNOSIS: Hepatitis C. Will follow lab work. Chest CBC and CMP on May 20. DIET: A 2 g sodium ADA 1800 diet. We will follow. Dictated By: JENNIFER BONILLA/GILBERT Conf#: [id number] DID#: [id number]
[2016-05-18] MEDS: morphine 4 MG/ML VIAL IV PRN (16:07)
[2016-05-18] MEDS ORDERED: HYDR-902 PO (16:41)
[2016-05-18] MEDS ORDERED: TAMS0.4C2 PO (16:54)
[2016-05-18] MEDS ORDERED: SENN-53 PO (16:55)
[2016-05-18] MEDS ORDERED: ONDA-43 PO (16:56)
[2016-05-18] MEDS ORDERED: MUPI1OIN5 NASAL (16:57)
[2016-05-18] MEDS ORDERED: INSU100I22 SC (16:58)
[2016-05-18] MEDS ORDERED: PROCTOZONE (17:03)
[2016-05-18] MEDS: HYDROCODONE/APAP (10/325) TAB PO PRN (18:23)
--- NOTE | 2016-05-18 18:34 | CONS ---
Date/Time of Note Date/Time of Note DATE: 05/18/16 TIME: 18:32 Assessment/Plan Assessment/Plan Problems: (1) Type 2 diabetes mellitus with diabetic polyneuropathy Status: Chronic Comment: Excellent glycemic control w/ mild fasting hyperglycemia. Would increase lantus back up from 28 qhs to 32 qhs. Cont. Novolog 10 qac. Pt. to be d/c'ed and should continue these doses at SNF. 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: with senior care use Qualified Code : E11.42 - Type 2 diabetes mellitus with diabetic polyneuropathy, with long- term current use of insulin Consultation Date/Type/Reason Admit Date/Time May 14, 2016 at 12:27 Initial Consult Date 05/14/16 Type of Consultation: Endocrinology Reason for Consultation DKA Referring Provider: JENNIFER PHILLIPS MD 24 HR Interval Summary Constitutional: improved, no complaints Detailed Summary Respiratory: no complaints Cardiovascular: no complaints Gastrointestinal: no complaints Genitourinary: no complaints Musculoskeletal: no complaints Neurologic: no complaints Exam/Review of Systems Vital Signs Vitals VS - Last 72 Hours, by Label Date Time Temp Pulse Resp B/P Pulse Ox O2 Delivery O2 Flow Rate FiO2 05/18/16 07:36 98.5 69 18 124/59 98 05/17/16 19:46 99.3 80 20 130/62 95 05/17/16 07:58 99.9 86 19 140/63 96 05/16/16 19:45 97.6 66 21 157/70 96 05/16/16 07:54 98.3 77 17 146/65 99 05/15/16 20:12 97.0 75 20 147/64 97 Vital Signs Date Time Temp Pulse Resp B/P Pulse Ox O2 Delivery O2 Flow Rate FiO2 05/18/16 07:36 98.5 69 18 124/59 98 05/15/16 09:00 Room Air Intake and Output 05/17/16 05/17/16 05/18/16 15:00 23:00 07:00 Intake Total 200 ml 240 ml Output Total 300 ml 320 ml Balance -100 ml -80 ml Exam Constitutional: alert, oriented, well developed Psych: nl mood/affect, no complaints Respiratory: clear to auscultation, normal air movement Cardiovascular: nl pulses, regular rate and rhythm, No edema, No murmurs/extra sounds, No rub Gastrointestinal: bowel sounds, nl liver, spleen, non-tender, soft, No mass, No rebound or guarding Musculoskeletal: nl extremities to inspection Extremities: normal pulses, No clubbing, No cyanosis, No edema 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, nl mental status, nl speech, nl strength Additional Comments Bedside Glucose - 72 Hours Test 05/15/16 20:56 05/16/16 07:46 05/16/16 11:55 05/16/16 17:14 Bedside Glucose 209mg/dL (70-220) 80mg/dL (70-220) 154mg/dL (70-220) 144mg/dL (70-220) Test 05/16/16 21:20 05/17/16 07:50 05/17/16 12:14 05/17/16 17:16 Bedside Glucose 196mg/dL (70-220) 105mg/dL (70-220) 125mg/dL (70-220) 190mg/dL (70-220) Test 05/17/16 21:23 05/18/16 07:51 05/18/16 11:39 05/18/16 17:22 Bedside Glucose 139mg/dL (70-220) 222mg/dL (70-220) H 157mg/dL (70-220) 146mg/dL (70-220) Results Result Diagram: 05/18/16 0434 05/18/16 0434 Results 24 hrs Laboratory Tests Test 05/17/16 21:23 05/18/16 04:34 05/18/16 07:51 05/18/16 11:39 Bedside Glucose 139 222 H 157 Alanine Aminotransferase (ALT/SGPT) 149 H Albumin 3.0 L Albumin/Globulin Ratio 1.00 Alkaline Phosphatase 276 H Anion Gap 15 Aspartate Amino Transf (AST/SGOT) 300 #H Basophils # 0.0 Basophils % 0.5 Blood Morphology Comment Blood Urea Nitrogen 17 Calcium Level 8.9 Carbon Dioxide Level 29 Chloride Level 100 Creatinine 1.42 H Direct Bilirubin 0.00 Eosinophils # 0.0 Eosinophils % 0.3 Globulin 3.00 Glucose Level 186 Hematocrit 29.0 L Hemoglobin 9.6 L Hepatitis B Surface Antigen NEGATIVE Hepatitis C Antibody REACTIVE H INR International Normalized Ratio 1.07 Indirect Bilirubin 0.3 Lymphocytes # 1.1 Lymphocytes % 16.7 Magnesium Level 1.8 Mean Corpuscular Hemoglobin 29.2 Mean Corpuscular Hemoglobin Concent 33.2 Mean Corpuscular Volume 87.9 Mean Platelet Volume 10.2 Monocytes # 0.6 Monocytes % 8.5 Neutrophils # 4.8 Neutrophils % 74.0 Nucleated Red Blood Cells # 0.0 Nucleated Red Blood Cells % 0.0 Phosphorus Level 3.7 Platelet Count 165 # Potassium Level 5.1 Prothrombin Time 13.9 Prothrombin Time Ratio 1.1 Red Blood Count 3.30 L Red Cell Distribution Width 15.0 H Sodium Level 139 Total Bilirubin 0.3 Total Protein 6.0 #L White Blood Count 6.5 # Test 05/18/16 17:22 Bedside Glucose 146 Medications Medications Current Medications Acetaminophen (Tylenol Tab) 500 mg BID PRN PO PAIN AND OR ELEVATED TEMP; Start 05/14/16 at 12:30 Aspirin (Aspirin) 81 mg DAILY PO Last administered on 05/18/16 09:15; Admin Dose 81 MG; Start 05/15/16 at 09:00 Carbidopa/Levodopa (Sinemet (25/ 100)) 1 tab QID PO Last administered on 17:18; Admin Dose 1 TAB; Start 05/14/16 at 13:00 Cyanocobalamin (Vitamin B12) 500 mcg DAILY PO Last administered on 05/18/16 09 :15; Admin Dose 500 MCG; Start 05/15/16 at 09:00 Divalproex Sodium (Depakote) 250 mg BID PO Last administered on 05/18/16 09:15 ; Admin Dose 250 MG; Start 05/14/16 at 21:00 EZETIMIBE (Zetia) 10 mg HS PO Last administered on 05/17/16 21:10; Admin Dose 10 MG; Start 05/14/16 at 21:00 Finasteride (Proscar) 5 mg DAILY PO Last administered on 05/18/16 09:15; Admin Dose 5 MG; Start 05/15/16 at 09:00 Acetaminophen/ Hydrocodone Bitart ([place] (10/325)) 1 tab Q6 PRN PO SEVERE PAIN LEVEL 7-10 Last administered on 05/18/16 18:23; Admin Dose 1 TAB; Start at 12:30 Trazodone HCl (Desyrel) 25 mg QHS PO Last administered on 05/17/16 21:11; Admin Dose 25 MG; Start 05/14/16 at 21:00 Tamsulosin HCl (Flomax) 0.4 mg QHS PO Last administered on 05/17/16 21:17; Admin Dose 0.4 MG; Start 05/14/16 at 21:00 Heparin Sodium (Porcine) (Heparin (5000 Units/0.5 ml)) 5,000 unit Q12 SC Last administered on 05/18/16 09:16; Admin Dose 5,000 UNIT; Start 05/14/16 at 12:30 Ondansetron HCl (Zofran Inj) 4 mg Q4 PRN IV n/v Last administered on 05/16/16 17:01; Admin Dose 4 MG; Start 05/14/16 at 12:30 Acetaminophen (Tylenol Tab) 650 mg Q4H PRN PO pain Last administered on 12:25; Admin Dose 650 MG; Start 05/14/16 at 12:30 Miscellaneous Information 1 ea NOTE XX ; Start 05/14/16 at 16:30 Glucose (Glutose) 15 gm Q15M PRN PO DECREASED GLUCOSE; Start 05/14/16 at 16:30 Glucose (Glutose) 22.5 gm Q15M PRN PO DECREASED GLUCOSE; Start 05/14/16 at 16: 30 Glucagon (Glucagen) 1 mg Q15M PRN IM DECREASED GLUCOSE; Start 05/14/16 at 16:30 Glucose (Glutose) 15 gm Q15M PRN BUCCAL DECREASED GLUCOSE; Start 05/14/16 at 16 :30 Dextrose (D50w Syringe) 25 ml Q15M PRN IV DECREASED GLUCOSE; Start 05/14/16 at 18:30 Dextrose (D50w Syringe) 50 ml Q15M PRN IV DECREASED GLUCOSE; Start 05/14/16 at 18:30 Morphine Sulfate (morphine) 4 mg Q4H PRN IV severe pain (7-10/10) Last administered on 05/18/16 16:07; Admin Dose 4 MG; Start 05/16/16 at 12:30 Docusate Sodium (Colace) 250 mg BID PRN PO CONSTIPATION; Start 05/16/16 at 13: 00 Senna (Senokot) 1 tab BID PO Last administered on 05/18/16 09:15; Admin Dose 1 TAB; Start 05/16/16 at 13:00 Hydrocortisone (Proctozone-Hc) 1 applic HS HI Last administered on 05/17/16 21 :13; Admin Dose 1 APPLIC; Start 05/16/16 at 21:00 Mupirocin (Bactroban) 1 applic BID TOP Last administered on 05/18/16 09:15; Admin Dose 1 APPLIC; Start 05/16/16 at 13:00 Gabapentin (Neurontin) 400 mg BID PO Last administered on 05/18/16 09:15; Admin Dose 400 MG; Start 05/16/16 at 21:00 Insulin Glargine (Lantus) 32 unit QHS SC ; Start 05/18/16 at 21:00 ALBINO BEVERLY MD May 18, 2016 18:34
--- NOTE | 2016-05-18 19:20 | CONS ---
DATE OF ADMISSION: 05/14/2016 DATE OF CONSULTATION: TYPE OF CONSULTATION: Gastroenterology. Thank you for asking me to evaluate the patient. REASON FOR CONSULTATION: Abnormal LFT. HISTORY OF PRESENT ILLNESS: A 65-year-old male with a history of diabetes mellitus type 2, CVA, rig ht hemiplegia, psychiatric disorder, dementia, hypertension, seizure disorder, vertigo, diabetic nep hropathy, chronic kidney disease, osteoarthritis admitted to the hospital for hyperglycemia. The pa phil had glucose, which was not under control. Endocrine consult was obtained and was placed on in sulin. The blood sugar is finally under control. GI consult was called in for abnormal LFT. The p atient denies any alcohol consumption or hepatitis in the past. No abdominal pain, no nausea, no vo miting. No chest pain, no shortness of breath. PAST SURGICAL HISTORY: Right knee and cholecystectomy. SOCIAL HISTORY: He is . He has no children, lives in [facility]. FAMILY HISTORY: Mother from lung cancer. REVIEW OF SYSTEMS: Negative. PHYSICAL EXAMINATION: GENERAL: Alert, awake, not in distress. VITAL SIGNS: Stable. HEENT: Unremarkable. NECK: Supple. No thyromegaly, no lymphadenopathy. CARDIOVASCULAR: No murmur, gallop, or click. LUNGS: Clear. ABDOMEN: Benign. EXTREMITIES: No edema. CENTRAL NERVOUS SYSTEM: He has a right hemiplegia. LABORATORY DATA: WBC 6.5, hematocrit is 29. Liver function tests: SGOT is 300, SGPT 149, alkaline phosphatase 276, total bilirubin was normal. Serologies: Hepatitis C antibody was positive. Live r ultrasound was negative for any dilatation of the biliary system. IMPRESSION: 1. Abnormal liver function tests, rule out hepatitis C, rule out statin-induced. 2. Diabetes mellitus. 3. Seizure disorder. 4. Anemia, which is of chronic disease. 5. Benign prostatic hypertrophy. 6. Rectal pain, which is resolved now. PLAN: 1. At this point, we will send for hepatitis C viral load by PCR method. The sister confirmed whet her he has a true hepatitis C or not. 2. Stool for occult blood for anemia. 3. Colonoscopy if he has not had it done in the last 10 years. 4. We will follow him as an outpatient. Dictated By: JASSON LYON/GILBERT Conf#: [id number] DID#: [id number] CC: JENNIFER PHILLIPS MD; JASSON FLOWERS MD;*[facility]*
[2016-05-18] MEDS ORDERED: INSULIN GLARGINE [LANtus] 3 ML PEN SC SCH (21:00)
== END 2016-05-18 20:01 | DRG 638 ==
LOC: E/R 10:40 → ICU 12:27 → PP2 15:21
PROVIDERS: ADMIT Internal Medicine; ATTEND Internal Medicine
DX: E13.10 Other specified diabetes mellitus with ketoacidosis without coma (principal); I69.351 Hemiplegia and hemiparesis following cerebral infarction affecting right dominant side; N18.3 Chronic kidney disease, stage 3 (moderate); I12.9 Hypertensive chronic kidney disease with stage 1 through stage 4 chronic kidney disease, or unspecified chronic kidney disease; E78.5 Hyperlipidemia, unspecified; F32.9 Major depressive disorder, single episode, unspecified; E86.0 Dehydration; D64.9 Anemia, unspecified; B19.20 Unspecified viral hepatitis C without hepatic coma; K59.00 Constipation, unspecified; K62.89 Other specified diseases of anus and rectum; G40.909 Epilepsy, unspecified, not intractable, without status epilepticus; N40.0 Benign prostatic hyperplasia without lower urinary tract symptoms; F29 Unspecified psychosis not due to a substance or known physiological condition; Z79.82 Long term (current) use of aspirin
CPT/HCPCS: 36415; 71010; 76705; 80048; 80053; 80061; 80076; 81003; 82043; 82803; 82962; 82977; 83036; 83605; 83690; 83735; 84100; 84443; 84484; 85025; 85610; 86803; 87081; 87340; 93005; 96372; 96374; J1815; J2270; J2405; J3480; J7030; J7042; J7120

== ENCOUNTER 2016-08-22 04:40 | Inpatient (IN) | payer MEDICARE, OTHER ==
[2016-08-22] VITALS (14 sets, daily range): BP systolic 91–108; BP diastolic 39–58; PULSE 84–111; RESP 13–20; TEMP 97.5; Ht 177.8 cm; Wt 90.9 kg
[~2016-08-22] VITALS: Ht 177.8 cm; Wt 90.9 kg
[~2016-08-22 04:40] MED LIST changes: -ACET-141 PO; -CARSR60 PO; +INSU100I22 SC; -LIRA0.6P SQ; +MUPI1OIN5 NASAL; +ONDA-43 PO; -POTA10TA37 PO; +PROCTOZONE; -ROSU40TA35 PO; +SENN-53 PO; +TAMS0.4C2 PO; -[UNRECOGNIZED DRUG - CODE] PO
[2016-08-22 06:15] LABS: ADD SCAN DIFF NO
[2016-08-22 06:22] LABS: BASOPHIL # 0.1 10^3/ul (0.0-0.1); BASOPHILS % 0.3 % (0.0-2.0); EOSINOPHILS % 0.2 % (0.0-7.0); HEMATOCRIT 33.5 % (42.0-52.0); HEMOGLOBIN 9.8 g/dl (14.0-18.0); LYMPHOCYTES # 1.4 10^3/ul (0.8-2.9); LYMPHOCYTES % 6.6 % (15.0-51.0); MEAN CORPUSCULAR HEMOGLOBIN 28.3 pg (29.0-33.0); MEAN CORPUSCULAR HGB CONC 29.3 g/dl (32.0-37.0); MEAN CORPUSCULAR VOLUME 96.8 fl (82.0-101.0); MEAN PLATELET VOLUME 11.8 fl (7.4-10.4); MONOCYTE # 1.1 10^3/ul (0.3-0.9); MONOCYTES % 5.1 % (0.0-11.0); NEUTROPHIL # 19.1 10^3/ul (1.6-7.5); NEUTROPHILS % 86.8 % (39.0-77.0); PLATELET COUNT 315 10^3/UL (140-415); RED BLOOD COUNT 3.46 10^6/ul (4.70-6.10); RED CELL DISTRIBUTION WIDTH 13.5 % (11.5-14.5)
[2016-08-22] MEDS ORDERED: SOD CHLORIDE 0.9% 2,000 ML IV STA (06:28)
[2016-08-22] MEDS ORDERED: ONDANSETRON 4 MG INJ IV STA (06:28)
[2016-08-22] MEDS ORDERED: LORAZEPAM 2 MG INJ IV ONE ×2 (06:30→10:00)
[2016-08-22 07:00] LABS: ALBUMIN 3.8 g/dl (3.3-4.9); CHLORIDE 91 mmol/L (97-110)
[2016-08-22 07:01] LABS: SODIUM 132 mmol/L (135-144)
[2016-08-22 07:03] LABS: ALBUMIN/GLOBULIN RATIO 1.31; ALKALINE PHOSPHATASE 114 IU/L (42-121); ANION GAP 35 (8-16); ASPARTATE AMINO TRANSFERASE 16 IU/L (15-46); BILIRUBIN,INDIRECT 0.4 mg/dl (0-1.1); BILIRUBIN,TOTAL 0.4 mg/dl (0.2-1.3); BLOOD UREA NITROGEN 37 mg/dl (7-20); CARBON DIOXIDE 12 mmol/L (21-31); CREATININE 1.79 mg/dl (0.61-1.24); TOTAL PROTEIN 6.7 g/dl (6.1-8.1)
[2016-08-22 07:04] LABS: ALANINE AMINOTRANSFERASE 21 IU/L (13-69); CALCIUM 9.2 mg/dl (8.4-10.2); MAGNESIUM 1.9 mg/dl (1.7-2.5); PHOSPHORUS 5.9 mg/dl (2.5-4.9)
[2016-08-22] MEDS ORDERED: SODIUM CHLORIDE 0.9% 1L BAG IV* STA (07:26)
[2016-08-22] MEDS ORDERED: CEFEPIME 2GM/50 ML (PMX) 50 ML IVPB STA (07:26)
[2016-08-22 07:28] LABS: TROPONIN-I < 0.012 ng/ml (0.00-0.12)
--- NOTE | 2016-08-22 07:28 | RADRPT ---
PROCEDURE: Chest. CLINICAL INDICATION: Chest pain. TECHNIQUE: Single frontal view of the chest was obtained. COMPARISON: 05/14/2016. FINDINGS: The cardiac silhouette is within normal limits. The aortic arch is unremarkable. There is no focal consolidation, vascular congestion or pleural effusion. There is no pneumothorax. There are multip le old right-sided rib fractures. There is an old fracture of the right distal clavicle. IMPRESSION: No evidence for active cardiopulmonary disease. .Kleby Paredes MD, MD Date Time Electronically viewed and signed by .Kelby Paredes MD, on 08/22/2016 07:28 .T/
[2016-08-22] MEDS ORDERED: VANCOMYCIN 1 GM (PMX) 250 ML IVPB ONE (07:30)
[2016-08-22 07:32] LABS: GLUCOSE 956 mg/dl (70-220)
[2016-08-22] MEDS ORDERED: INSULIN HUMAN REGULAR 100 UNIT in SOD CHLORIDE 0.9% 99 ML IV STA (07:46)
[2016-08-22] MEDS ORDERED: INSULIN REGULAR 10 ML INJ IV STA (07:46)
[2016-08-22] MEDS ORDERED: INSULIN REGULAR, HUMAN 100 UNIT/1 ML 3ML VIAL IV STA (07:58)
--- NOTE | 2016-08-22 08:16 | ERA ---
ER Documentation Chief Complaint Date/Time DATE: 08/22/16 TIME: 08:12 Chief Complaint Hyperglycemia HPI This is a 66-year-old man with a history of diabetes, multiple diabetic ketoacidosis, dementia, Parkinson's disease who is here for hyperglycemia sent from the nursing care facility. Patient is a very poor historian and only moans and groans and can answer basic questions but cannot give any detailed history. He is denying to me that he is not any discomfort ROS All systems reviewed and are negative except as per history of present illness. Medications Home Meds Reported Medications [Proctozone] No Conflict Check, QHS 05/18/16 Insulin Aspart (Novolog FlexPen) 100 Unit/1 Ml Insuln.pen, 10 UNITS SC WITH MEALS, EA 05/18/16 Mupirocin Calcium* (Bactroban* Nasal) 2% -1 Gram Oint...g., 1 APPLIC NASAL BID, TUB 05/18/16 Ondansetron Hcl* (Zofran*) 4 Mg Tab, 4 MG PO Q4H Y for NAUSEA AND OR VOMITING, TAB 05/18/16 Sennosides* (Senna Lax*) 8.6 Mg Tablet, 1 TAB PO BID, TAB 05/18/16 Tamsulosin Hcl* (Tamsulosin Hcl*) 0.4 Mg Cap.er.24h, 0.4 MG PO HS, CAP 05/18/16 Hydrocodone/Acetaminophen (Gaines 10-325 Tablet) 1 Each Tablet, 1 EACH PO Q6 Y for PAIN, TAB 05/18/16 Ezetimibe* (Zetia*) 10 Mg Tablet, 10 MG PO HS, TAB 03/12/16 Trazodone Hcl* (Trazodone Hcl*) 50 Mg Tablet, 25 MG PO QHS, #30 TAB 03/12/16 Carbidopa-Levodopa* (Sinemet*) 25-100 Mg Tab, 1 TAB PO QID, TAB 03/12/16 Finasteride* (Proscar*) 5 Mg Tablet, 5 MG PO DAILY, TAB 03/12/16 Insulin Aspart* (Novolog Insulin Pen*) 100 Unit/Ml Soln, 0-10 SC .SLIDING SCALE AC, EA 03/12/16 Hydrocodone/Acetaminophen ([place]aines 10-325 Tablet) 1 Each Tablet, 1 EACH PO Q6 Y for SEVERE PAIN LEVEL 7-10, TAB 03/12/16 Gabapentin* (Neurontin*) 600 Mg Tablet, 400 MG PO BID, #60 TAB 03/12/16 Melatonin (Melatin) 3 Mg Tablet, 3 MG PO QHS, TAB 03/12/16 Furosemide* (Furosemide*) 40 Mg Tablet, 40 MG PO DAILY, TAB 03/12/16 Insulin Glargine* (Lantus*) 100 Unit/Ml Soln, 32 UNIT SC DAILY, #1 VIAL at bedtime 03/12/16 Ferrous Sulfate* (Ferrous Sulfate*) 325 Mg Tabec, 325 MG PO BID, TAB 03/12/16 Divalproex Sodium* (Depakote*) 250 Mg Tablet.dr, 250 MG PO BID, TAB 03/12/16 Cyanocobalamin* (Vitamin B12*) 500 Mcg Tab, 500 MCG PO DAILY, TAB 03/12/16 Aspirin* (Aspirin* Chew) 81 Mg Tab.chew, 81 MG PO DAILY, TAB.CHEW 03/12/16 Allergies Allergies: Coded Allergies: No Known Allergy (Unverified , 03/22/16) PMhx/Soc History of Surgery: Yes (Cholecystectomy, right knee surgery) Anesthesia Reaction: No Hx 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 Disorder: Yes (cva) Hx Respiratory Disorders: No Hx Cardiac Disorders: Yes (HTN, carotid stenosis) Hx Psychiatric Problems: Yes Hx Miscellaneous Medical Probl: Yes (dm2, ckd, oa, hepatitis C, anemia, bph) Hx Alcohol Use: No Hx Substance Use: No Hx Tobacco Use: Yes (Former smoker ) Smoking Status: Unknown if ever smoked FmHx Unable to obtain due to dementia Physical Exam Vitals Vital Signs Date Time Temp Pulse Resp B/P Pulse Ox O2 Delivery O2 Flow Rate FiO2 08/22/16 06:36 97.5 119 24 115/49 99 Room Air 08/22/16 06:11 98.7 122 26 165/75 Physical Exam Const: [] Head: Atraumatic Eyes: Normal Conjunctiva ENT: Normal External Ears, Nose and Mouth. Neck: Full range of motion..~ No meningismus. Resp: Clear to auscultation bilaterally Cardio: Regular rate and rhythm, no murmurs Abd: Soft, non tender, non distended. Normal bowel sounds Skin: No petechiae or rashes Back: No midline or flank tenderness Ext: No cyanosis, or edema Neur: Awake and alert Psych: Normal Mood and Affect Result Diagram: 08/22/16 0555 08/22/16 0555 Results 24 hrs Laboratory Tests Test 08/22/16 05:11 08/22/16 05:55 08/22/16 05:56 08/22/16 08:51 Bedside Glucose > 595mg/dL > 595mg/dL White Blood Count 22.010^3/ul Red Blood Count 3.4610^6/ul Hemoglobin 9.8g/dl Hematocrit 33.5% Mean Corpuscular Volume 96.8fl Mean Corpuscular Hemoglobin 28.3pg Mean Corpuscular Hemoglobin Concent 29.3g/dl Red Cell Distribution Width 13.5% Platelet Count 75590^3/UL Mean Platelet Volume 11.8fl Neutrophils % 86.8% Lymphocytes % 6.6% Monocytes % 5.1% Eosinophils % 0.2% Basophils % 0.3% Nucleated Red Blood Cells % 0.0/100WBC Neutrophils # 19.110^3/ul Lymphocytes # 1.410^3/ul Monocytes # 1.110^3/ul Eosinophils # 0.010^3/ul Basophils # 0.110^3/ul Nucleated Red Blood Cells # 0.010^3/ul Sodium Level 132mmol/L Potassium Level 6.0mmol/L Chloride Level 91mmol/L Carbon Dioxide Level 12mmol/L Anion Gap 35 Blood Urea Nitrogen 37mg/dl Creatinine 1.79mg/dl Glucose Level 956mg/dl Calcium Level 9.2mg/dl Phosphorus Level 5.9mg/dl Magnesium Level 1.9mg/dl Total Bilirubin 0.4mg/dl Direct Bilirubin 0.00mg/dl Indirect Bilirubin 0.4mg/dl Acetone Level (Chemistry) Aspartate Amino Transf (AST/SGOT) 16IU/L Alanine Aminotransferase (ALT/SGPT) 21IU/L Alkaline Phosphatase 114IU/L Troponin I < 0.012ng/ml Total Protein 6.7g/dl Albumin 3.8g/dl Globulin 2.90g/dl Albumin/Globulin Ratio 1.31 Lactic Acid Level 7.7mmol/L Current Medications Medications (Trade) Dose Ordered Sig/Vicky Route PRN Reason Start Time Stop Time Status Last Admin Dose Admin Sodium Chloride (NS) 2,000 ml @ 1,000 mls/hr Q2H STAT IV 08/22/16 06:28 08/22/16 08:27 DC 08/22/16 06:48 Ondansetron HCl (Zofran Inj) 4 mg ONCE STAT IV 08/22/16 06:28 08/22/16 06:31 DC 08/22/16 06:46 Lorazepam (Ativan) 1 mg ONCE ONCE IV 08/22/16 06:30 08/22/16 06:31 DC 08/22/16 06:46 Sodium Chloride 2820 ml 2,820 ml BOLUS OVER 2 HOURS STAT IV* 08/22/16 07:26 08/22/16 07:27 DC Cefepime HCl 50 ml @ 100 mls/hr ONCE STAT IVPB 08/22/16 07:26 08/22/16 07:55 DC Vancomycin HCl (Vancocin) 250 ml @ 125 mls/hr ONCE ONCE IVPB 08/22/16 07:30 08/22/16 09:29 Insulin Human Regular 8 unit 8 unit ONCE STAT IV 08/22/16 07:46 08/22/16 07:47 DC Insulin Human Regular/Sodium Chloride (Novolin-R/NS) 100 ml @ 0 mls/hr TITRATE STAT IV 08/22/16 07:46 08/22/16 07:47 DC Insulin Human Regular (Humulin R) 8 unit ONCE STAT IV 08/22/16 07:58 08/22/16 08:07 DC 08/22/16 08:55 Lidocaine (Xylocaine 1% (Mpf)) 5 ml ONCE ONCE SC 08/22/16 09:00 08/22/16 09:01 DC Procedures/MDM EKG: Rate/Rhythm: Sinus tachycardia heart rate 117 QRS, ST, QT: NORMAL VT, QRS, QT] Impression: Sinus tachycardia ] PROCEDURE: Chest. CLINICAL INDICATION: Chest pain. TECHNIQUE: Single frontal view of the chest was obtained. COMPARISON: 05/14/2016. FINDINGS: The cardiac silhouette is within normal limits. The aortic arch is unremarkable. There is no focal consolidation, vascular congestion or pleural effusion. There is no pneumothorax. There are multiple old right-sided rib fractures. There is an old fracture of the right distal clavicle. IMPRESSION: No evidence for active cardiopulmonary disease. .Kelby Paredes MD, MD Date Time Electronically viewed and signed by .Kelby Paredes MD, MD on 08/22/2016 07:28 .T/ CC: DEMARCUS AJ DO Patient was found to have a very elevated blood glucose at 956 with positive acetone. He does have CO2 is low at 12. His lactic acid is elevated at 7.7. This is likely due to his DKA and not due to sepsis the patient is well- appearing and not febrile. He had blood cultures drawn and was given antibiotics Insulin drip was started as well as IV fluid resuscitation per sepsis protocol Will be admitted for DKA His elevated white blood count 22,000 and currently awaiting his urinalysis as this may be the source. Chest x-ray is clean. Patient has potassium of 6.0 which I will leave alone at this point is his potassium will likely drop due to DKA therapy. Critical Care Time: 30 minutes Treatments/Evaluations: Close monitoring and treatment of unstable vital signs, cardiorespiratory, and neurologic status, while maintaining tight balance of fluid, respiratory, and cardiac interventions. This time includes discussing the case with the patient and the patient's family. This time does not include all procedures stated elsewhere in this record. This time also includes reviewing old records, labs and radiological studies. This time includes examining and re-examining the patient. Additionally, this time also includes arranging care with admitting and consulting physicians. Departure Diagnosis: Primary Impression: DKA (diabetic ketoacidoses) Qualified Code: E10.10 - Diabetic ketoacidosis without coma associated with type 1 diabetes mellitus Condition: DEMARCUS Estrada DO August 22, 2016 08:16
[2016-08-22] MEDS ORDERED: LIDOCAINE 1% (MPF) 5 ML VIAL SC ONE ×2 (09:00→10:00)
[2016-08-22] MEDS ORDERED: DEXTROSE 50% 50 ML SYRINGE IV PRN ×3 (09:30→23:00)
[2016-08-22] MEDS ORDERED: ZOLPIDEM 5 MG TAB PO PRN (09:30)
[2016-08-22] MEDS ORDERED: ACCU-CHEK XX SCH (09:30)
[2016-08-22] MEDS ORDERED: ACETAMINOPHEN 650MG/20.3ML CUP PO PRN (09:30)
[2016-08-22] MEDS ORDERED: INSULIN HUMAN REGULAR 100 UNIT in SOD CHLORIDE 0.9% 99 ML IV SCH ×2 (09:30→23:00)
[2016-08-22] MEDS ORDERED: ALBUTEROL/IPRATROPIUM (NEB) 3 ML AMP NEB PRN (09:30)
[2016-08-22] MEDS ORDERED: ONDANSETRON 4 MG INJ IV PRN (09:30)
[2016-08-22] MEDS: ACCU-CHEK XX SCH ×15 (09:30→23:51)
[2016-08-22] MEDS ORDERED: VANCOMYCIN IV PER PHARMACY XX SCH (10:00)
[2016-08-22] MEDS ORDERED: VANCOMYCIN 2 GM in SOD CHLORIDE 0.9% 500 ML IVPB SCH (10:00)
[2016-08-22] MEDS: morphine 2 MG INJ IV PRN (11:42)
[2016-08-22] MEDS: SOD CHLORIDE 0.9% 100 ML ONE ×2 (12:30→17:02)
--- NOTE | 2016-08-22 12:40 | RADRPT ---
PROCEDURE: XR Chest. CLINICAL INDICATION: Check Line Placement TECHNIQUE: Single frontal view of the chest was obtained. COMPARISON: Chest x-ray from 08/22/2016 at 06:42 hours FINDINGS: There has been interval placement of a left-sided PICC line with its tip in the mid SVC. The heart and mediastinum are within normal limits. The lungs are clear. There is no significant pleural effusion or pneumothorax. IMPRESSION: Interval placement of a left-sided PICC line with its tip in the mid SVC. No definite focal infiltrates or effusions. RPTAT: EE Physician Rubina Date Time Electronically viewed and signed by Barrett Acharya Physician on 08/22/2016 12:39 RA/
--- NOTE | 2016-08-22 12:41 | RADRPT ---
PROCEDURE: US guidance for PICC line CLINICAL INDICATION: PICC line placement TECHNIQUE: Multiple real-time images were acquired of the patient's arm utilizing a high resolutio n transducer. This was performed by the PICC line nurse for venous access. COMPARISON: None FINDINGS: A patent left upper extremity vein is noted. IMPRESSION: Ultrasound guidance for PICC line placement. RPTAT: AA Physician Rubina Date Time Electronically viewed and signed by Barrett Acharya Physician on 08/22/2016 12:40 /
[2016-08-22] MEDS: CARBIDOPA/LEVODOPA (25/100) TAB PO SCH ×3 (13:00→20:38)
[2016-08-22 13:59] LABS: ADD UMIC NO; URINE BILIRUBIN (Dip) NEGATIVE (NEGATIVE); URINE BLOOD (Dip) NEGATIVE (NEGATIVE); URINE COLOR LT. YELLOW (YELLOW); URINE GLUCOSE (Dip) >=1000 % (NEGATIVE); URINE KETONES (Dip) 3+ (NEGATIVE); URINE LEUKOCYTE ESTERASE (Dip) NEGATIVE (NEGATIVE); URINE NITRITE (Dip) NEGATIVE (NEGATIVE); URINE TOTAL PROTEIN (Dip) NEGATIVE (NEGATIVE); URINE UROBILINOGEN (Dip) 0.2 E.U./dL (0.1-1.0)
[2016-08-22] MEDS ORDERED: VANCOMYCIN 1.5 GM in SOD CHLORIDE 0.9% 250 ML IVPB SCH (14:00)
[2016-08-22] MEDS: SOD CHLORIDE 0.9% 1,000 ML IV SCH ×2 (14:43→15:05)
[2016-08-22 15:35] LABS: POTASSIUM 4.3 mmol/L (3.5-5.1)
[2016-08-22 15:38] LABS: CREATININE 2.08 mg/dl (0.61-1.24)
[2016-08-22] MEDS ORDERED: POTASSIUM CHLORIDE 250 ML IVPB ONE (17:00)
[2016-08-22] MEDS ORDERED: SOD CHLORIDE 0.9% 1,000 ML IV ONE (17:00)
[2016-08-22] MEDS: TAMSULOSIN (SR) 0.4 MG CAP PO SCH (20:37)
[2016-08-22] MEDS: CEFEPIME 1GM/50 ML (PMX) 50 ML IVPB SCH (20:37)
[2016-08-22] MEDS: FAMOTIDINE 20 MG INJ IV SCH (20:37)
[2016-08-22] MEDS: FERROUS SULFATE (EC) 325 MG TAB PO SCH (20:38)
[2016-08-22] MEDS: SENNA TAB PO SCH (20:38)
[2016-08-22] MEDS: GABAPENTIN 300 MG CAP PO SCH (20:38)
[2016-08-22] MEDS: EZETIMIBE 10 MG TAB PO SCH (20:38)
[2016-08-22] MEDS: HEPARIN 5,000 UNIT/0.5 ML VIAL SC SCH (20:39)
[2016-08-22] MEDS: DEXTROSE 5%-0.9% NACL 1,000 ML IV SCH (20:46)
[2016-08-22] MEDS: DIVALPROEX (ER) 250 MG TAB PO SCH ×2 (21:00→21:50)
[2016-08-22 21:28] LABS: CALCIUM 9.3 mg/dl (8.4-10.2); CREATININE 1.7 mg/dl (0.61-1.24); POTASSIUM 3.9 mmol/L (3.5-5.1)
[2016-08-22] MEDS: traZODone 50 MG TAB PO SCH (22:49)
[2016-08-23] VITALS (19 sets, daily range): BP systolic 94–145; BP diastolic 43–96; PULSE 73–93; RESP 5–22
[2016-08-23] MEDS: ACCU-CHEK XX SCH ×37 (00:11→21:00)
[2016-08-23] MEDS ORDERED: POTASSIUM CHLORIDE 250 ML IVPB ONE (04:00)
[2016-08-23] MEDS: DEXTROSE 5%-0.9% NACL 1,000 ML IV SCH ×2 (04:23→09:04)
[2016-08-23 04:50] LABS: ADD SCAN DIFF NO
[2016-08-23 04:57] LABS: ABNORMAL IP MESSAGE 1; BASOPHIL # 0.1 10^3/ul (0.0-0.1); BASOPHILS % 0.2 % (0.0-2.0); EOSINOPHILS # 0.2 10^3/ul (0.0-0.5); HEMATOCRIT 28.9 % (42.0-52.0); HEMOGLOBIN 9.1 g/dl (14.0-18.0); LYMPHOCYTES # 1.9 10^3/ul (0.8-2.9); LYMPHOCYTES % 9.4 % (15.0-51.0); MEAN CORPUSCULAR HEMOGLOBIN 28.6 pg (29.0-33.0); MEAN CORPUSCULAR HGB CONC 31.5 g/dl (32.0-37.0); MEAN CORPUSCULAR VOLUME 90.9 fl (82.0-101.0); MEAN PLATELET VOLUME 11.1 fl (7.4-10.4); MONOCYTES % 9.9 % (0.0-11.0); NEUTROPHIL # 15.8 10^3/ul (1.6-7.5); NEUTROPHILS % 78.9 % (39.0-77.0); PLATELET COUNT 267 10^3/UL (140-415); RED BLOOD COUNT 3.18 10^6/ul (4.70-6.10); RED CELL DISTRIBUTION WIDTH 13.7 % (11.5-14.5); WHITE BLOOD COUNT 20.1 10^3/ul (4.8-10.8)
[2016-08-23 05:47] LABS: CHOL/HDL RATIO 3.4 RATIO; PHOSPHORUS 3.1 mg/dl (2.5-4.9)
[2016-08-23 05:53] LABS: THYROID STIMULATING HORMONE 1.18 MIU/L (0.465-4.680)
--- NOTE | 2016-08-23 06:56 | HP ---
DATE OF ADMISSION: 08/22/2016 REASON FOR ADMISSION: DKA, encephalopathy. Rule out sepsis. HISTORY OF PRESENT ILLNESS: The patient is a 66-year-old male, very well known to me. He has history of diabetes mellitus, on high dose insulin, history of CVA with right hemiplegia, psychiatric disorder, vascular dementia, hypertension, seizure disorder, vertigo, diabetic neuropathy, BPH, anemia, CKD, osteoarthritis who currently resides at the alf facility at [facility]. In addition, he has iron deficiency anemia, history of carotid stenosis. The patient previously admitted under my care back in May for DKA. The patient was in usual state of health up until the evening prior to admission when I received a call stating that the patient is hyperglycemic over 500 and that he has episodes of nausea and vomiting. I instructed them to send him to [facility]. Upon evaluation in the ER, the patient was found to be in DKA. Bicarbonate was 12, sodium 132, chloride 91, anion gap was 29. Glucose level was 956. In addition, he was noted to be in renal failure with BUN and creatinine of 37/ 1.79 with a potassium of 6.0. White count was 22,000, suggestive of possible sepsis. Again, patient was tachycardic upon presentation with a heart rate up to 122. The patient was cultured. Chest x-ray was done which showed no evidence of active cardiopulmonary disease. He was started on aggressive fluid hydration, insulin drip and underwent left upper extremity PICC line placement as he has difficult veins. Upon evaluation at bedside, the patient remains seen in the emergency department. Patient appears to be more confused than baseline. Dry mucous membranes, complaining of slight abdominal discomfort. Otherwise, the patient is a poor historian secondary to his history of vascular dementia and now encephalopathy secondary to above. PAST MEDICAL HISTORY: Includes CVA with right hemiplegia, anemia of chronic disease, CKD stage III, diabetes mellitus, diabetic neuropathy, hypertension, dyslipidemia, BPH, seizure disorder, depression, psychiatric disorder, history of right heel ulcer, history of sacral wound in the past, history of carotid stenosis, 60% on the right, history of noncompliance with diet, obese state. SURGICAL HISTORY: Right knee surgery and cholecystectomy. ALLERGIES: NO KNOWN DRUG ALLERGIES. SOCIAL HISTORY: The patient is , no children. Currently resides at [facility]. He is a former smoker. No history of alcohol or illicit drugs. He has a sister and a decision-maker, his name is Jaylan. FAMILY HISTORY: Mother at young age from lung cancer. Father from old age. REVIEW OF SYSTEMS: Limited secondary to the patient's condition. MEDICATIONS: The patient's medications include the followin. NovoLog per sliding scale. 2. Proscar 5 mg daily. 3. Senna 8.6 mg b.i.d. 4. Sinemet 25/100 one tab q.i.d. 5. Flomax 0.4 mg at bedtime. 6. Trazodone 25 mg daily at night. 7. Vitamin B12 500 mcg daily. 8. 10 mg at bedtime. 9. Tylenol 650 q.6 p.r.n. 10. Aspirin 81 daily. 11. Depakote 250 mg b.i.d. 12. 325 mg daily. 13. Lantus 40 units at bedtime. 14. Lasix 40 mg daily. 15. Melatonin 3 mg times bedtime. 16. Neurontin 400 mg b.i.d. 17. [place] q.6 hours p.r.n. 18. NovoLog 20 units subq. REVIEW OF SYSTEMS: Again, limited secondary to the patient's condition. Noting regarding his hepatitis C, it was reactive, but then it was noted that his PCR is negative so it is a slightly false positive, so he does not have hepatitis C. The patient's previous hemoglobin A1c at the hospital was 7.6 on 05/15/2016. PHYSICAL EXAMINATION: VITAL SIGNS: Temperature 97.5, pulse 109, respirations 22, blood pressure is 132/95, saturation 99% on 3 liters nasal cannula. GENERAL: The patient is in no acute distress. The patient is pale. HEENT: Dry mucous membranes. CARDIOVASCULAR: S1 and S2, regular rate. LUNGS: Clear bilaterally. ABDOMEN: Soft. Overall, nontender. Negative McBurney, negative Jiang. EXTREMITIES: There is no clubbing, cyanosis, or edema. Slight scab wound in the right tibial area and the patient with right-sided weakness. LABORATORY DATA: White count is 22, hemoglobin 9.8, hematocrit 34, platelet count 358, neutrophils 87%, lymphocytes 7%. Chemistry: Sodium 132, potassium 6.0, chloride 91, bicarbonate 12, BUN 37, creatinine 1.79, glucose of 956, phosphorus 5.9, elevated magnesium 1.9, AST 16, ALT 21, alkaline phosphatase 114. Troponin negative at less than 0.012, albumin 3.8. Lactic acid high at 9.1. Last glucose level was documented at greater than 595 still. EKG: Shows sinus tachycardia, 116 beats per minute with nonspecific T-wave abnormalities. ASSESSMENT AND PLAN: This is a 66-year-old male with history of cerebrovascular accident with right hemiplegia, diabetes mellitus, hypertension , parkinsonism, CKD right, who presented with diabetic ketoacidosis, leukocytosis, likely sepsis. 1. Diabetic ketoacidosis. Patient will continue with insulin drip. Continue with aggressive fluid hydration with normal saline. Once glucose level is below 150 and if he still has anion gap, we will change fluids to D5 normal saline. Will monitor electrolytes, especially potassium and replace when potassium drops below 4.5. Will obtain another BMP stat now and we will follow. The patient will be admitted to the intensive care unit. Etiology of the DKA may be sepsis or infectious process. The patient will be started on broad-spectrum antibiotic with cefepime and vancomycin. I instructed the nurse to place a Duarte and obtain urine studies. The patient may have urosepsis. 2. Diabetes mellitus. We will follow up with hemoglobin A1c level and switch slowly. Once anion gap is close to subcutaneous insulin. 3. Acute renal failure, likely from prerenal azotemia and sepsis. The patient will be hydrated aggressively. Again, monitor electrolytes closely and replace. 4. Encephalopathy, likely secondary to sepsis, toxic metabolic. We will follow. 5. Benign prostatic hypertrophy. Continue Proscar and Flomax. Again, will place the Duarte for now to monitor urine output in the setting of sepsis and diabetic ketoacidosis. 6. The patient will be placed on deep venous thrombosis prophylaxis with heparin and gastrointestinal prophylaxis with either Pepcid or Protonix. 7. We will inform power of band instrument repairer regarding patient's current guarded condition. Again, chest x-ray was unremarkable. 8. Continue aspirin for cardiac protection as the patient has history of cerebrovascular accident. 9. We will advance diet as tolerated. We will follow. Dictated By: JENNIFER BONILLA/GILBERT Conf#: [id number] [facility]#: [id number] MTDD
[2016-08-23 07:05] LABS: ALBUMIN 2.9 g/dl (3.3-4.9)
[2016-08-23 07:06] LABS: POTASSIUM 3.7 mmol/L (3.5-5.1)
[2016-08-23 07:08] LABS: ALBUMIN/GLOBULIN RATIO 0.96; CREATININE 1.47 mg/dl (0.61-1.24); TOTAL PROTEIN 5.9 g/dl (6.1-8.1)
[2016-08-23 07:09] LABS: CALCIUM 8.5 mg/dl (8.4-10.2)
[2016-08-23] MEDS: CEFEPIME 1GM/50 ML (PMX) 50 ML IVPB SCH ×2 (08:35→20:31)
[2016-08-23] MEDS: FERROUS SULFATE (EC) 325 MG TAB PO SCH ×2 (08:36→20:37)
[2016-08-23] MEDS: ASPIRIN 81 MG TAB PO SCH (08:36)
[2016-08-23] MEDS: FINASTERIDE 5 MG TAB PO SCH (08:37)
[2016-08-23] MEDS: GABAPENTIN 300 MG CAP PO SCH ×2 (08:37→20:37)
[2016-08-23] MEDS: CARBIDOPA/LEVODOPA (25/100) TAB PO SCH ×4 (08:37→20:37)
[2016-08-23] MEDS: SENNA TAB PO SCH ×2 (08:37→20:37)
[2016-08-23] MEDS: CYANOCOBALAMIN 500 MCG TAB PO SCH (08:37)
[2016-08-23] MEDS: DIVALPROEX (ER) 250 MG TAB PO SCH ×2 (08:38→22:20)
[2016-08-23] MEDS: HEPARIN 5,000 UNIT/0.5 ML VIAL SC SCH (08:51)
[2016-08-23] MEDS ORDERED: VANCOMYCIN 1.5 GM in SOD CHLORIDE 0.9% 250 ML IVPB SCH ×2 (10:00→14:00)
[2016-08-23] MEDS ORDERED: INSULIN GLARGINE [LANtus] 3 ML PEN SC SCH (13:00)
[2016-08-23] MEDS: SOD CHLORIDE 0.9% 1,000 ML IV SCH (13:12)
[2016-08-23] MEDS ORDERED: GLUCOSE GEL 15 GRAM TUBE PO PRN ×2 (13:30)
[2016-08-23] MEDS ORDERED: GLUCAGON 1 MG INJ IM PRN (13:30)
[2016-08-23] MEDS ORDERED: GLUCOSE GEL 15 GRAM TUBE BUCCAL PRN (13:30)
[2016-08-23] MEDS ORDERED: DEXTROSE 50% 50 ML SYRINGE IV PRN ×2 (13:30)
[2016-08-23] MEDS ORDERED: INSULIN ASPART [NOVOLOG] 3 ML PEN SC SCH (17:35)
--- NOTE | 2016-08-23 19:00 | PN ---
DATE: 08/23/2016 SUBJECTIVE: Patient seen, more alert, less confused. Anion gap closed, the patient is on minimal i nsulin IV, about 1 unit an hour. Patient fluid was switched to D5. The patient overall doing archana r, asking for food. The vital signs are stable. The patient is not tachycardic anymore. The patie nt is status post also potassium infusion, as his electrolytes were monitored overnight. PHYSICAL EXAMINATION: VITAL SIGNS: Temperature is 98.5, pulse 73, respirations 16, blood pressure 105/51, saturation 97% on room air. GENERAL: The patient is in no acute distress. HEENT: Normocephalic, atraumatic. The patient is pale to is dry mucous membranes. No JVD. CARDIOVASCULAR: S1 and S2, regular rate and rhythm. LUNGS: Clear bilaterally. ABDOMEN: Soft, nontender, slightly overweight. No guarding, no rebound. Negative McBurney, negati ve Jiang. EXTREMITIES: No clubbing, cyanosis, or edema. LABORATORY DATA: White count is 20.1, hemoglobin 9.1, hematocrit 29, platelet count is 267, neutrop hils 79%, lymphocytes 9%. Chemistry: Sodium is 147, potassium 3.7, chloride 111, bicarbonate 23, B UN 38, creatinine 1.47, better, and glucose of 136. Lipase was 211. Hemoglobin A1c is 8, hemoglobi n A1c 8.3. Last glucose levels documented 164, 173 and 150. Cultures: Urine culture and blood cul tures remain negative. MEDICATIONS: Include: 1. Vancomycin dosed per pharmacy. 2. Aspirin 81 mg daily. 3. Vitamin B12 500 mcg daily. 4. Proscar 5 mg daily. 5. Accu-Chek every 1 hour. 6. Insulin IV protocol. 7. Dextrose as directed. 8. Pepcid 20 IV q.12h. 9. Heparin 5000 subcu q.12. 10. Depakote ER 250 b.i.d. 11. Zetia 10 mg at bedtime. 12. Ferrous sulfate 325 b.i.d. 13. Neurontin 400 b.i.d. 14. Senna 1 tab b.i.d. 15. Flomax 0.4 at bedtime. 16. Trazodone 25 at bedtime. 17. Cefepime 1 gram q.12h. 18. D5 normal saline at 125 mL an hour. 19. Sinemet 25/100 q.i.d. 20. Vancomycin dose per pharmacy. 21. Accu-Cheks every 1 hour. 22. Zofran p.r.n. 23. DuoNebs p.r.n. 24. Tylenol p.r.n. 25. [place] p.r.n. 26. Morphine p.r.n. 27. Ambien p.r.n. ASSESSMENT AND PLAN: This is a 66-year-old male with history of cerebrovascular accident, right hemiplegia, diabetes mellitus, hypertension, parkinsonism, chronic kidney disease, who presen mariaelena with diabetic ketoacidosis, leukocytosis, likely sepsis. 1. Diabetic ketoacidosis. Anion gap is closed. Discontinue IV drip, off insulin taper, to start h im on subcutaneous insulin with the Lantus and NovoLog. Continue fluid hydration. Clinically appea rs to be dry. Monitor electrolytes. The patient can be transferred to the medical/surgical floor. Diet has been advanced successfully. No episodes of nausea and vomiting. 2. Diabetes mellitus. Hemoglobin A1c at 8.3. Titrate insulin up to keep normotensive. 3. Acute renal failure, likely from prerenal azotemia and sepsis. Continue gentle hydration. May switch to half normal saline, pending a.m. sodium. 4. Encephalopathy, resolved, likely secondary to diabetic ketoacidosis. 5. Benign prostatic hypertrophy. Continue Proscar and Flomax. Discontinue Duarte soon. 6. Continue deep vein thrombosis prophylaxis and gastrointestinal prophylaxis. 7. I have spoken yesterday with Jaylan, who is the power of business attorney. 8. Parkinsonism. Continue Sinemet. 9. Continue stool softeners. 10. Diabetic neuropathy, on Neurontin. 11. Transfer to the medical/surgical floor, as the patient is clinically doing better. 12. Infectious disease. Clear site of infection is unclear as the patient still with persistent le ukocytosis. Continue to monitor for fevers and monitor white count. Will continue another day of b road spectrum antibiotics. We will follow. Dictated By: JENNIFER BONILLA/GILBERT Conf#: [id number] DID#: [id number]
[2016-08-23] MEDS: morphine 2 MG INJ IV PRN (19:43)
[2016-08-23] MEDS: FAMOTIDINE 20 MG INJ IV SCH (20:33)
[2016-08-23] MEDS: traZODone 50 MG TAB PO SCH (20:37)
[2016-08-23] MEDS: TAMSULOSIN (SR) 0.4 MG CAP PO SCH (20:37)
[2016-08-23] MEDS ORDERED: LORAZEPAM 1 MG TAB PO PRN (21:30)
[2016-08-23] MEDS: EZETIMIBE 10 MG TAB PO SCH (22:20)
[2016-08-24] MEDS: ACCU-CHEK XX SCH ×6 (00:20→21:00)
[2016-08-24] MEDS: SOD CHLORIDE 0.9% 1,000 ML IV SCH ×3 (00:20→17:12)
[2016-08-24] MEDS: morphine 2 MG INJ IV PRN ×4 (00:27→21:22)
[2016-08-24 05:42] LABS: ADD SCAN DIFF NO
[2016-08-24 06:00] LABS: BASOPHIL # 0.1 10^3/ul (0.0-0.1); BASOPHILS % 0.4 % (0.0-2.0); EOSINOPHILS # 0.4 10^3/ul (0.0-0.5); EOSINOPHILS % 2.7 % (0.0-7.0); HEMOGLOBIN 9.1 g/dl (14.0-18.0); LYMPHOCYTES # 2.1 10^3/ul (0.8-2.9); LYMPHOCYTES % 15.7 % (15.0-51.0); MEAN CORPUSCULAR HEMOGLOBIN 28.6 pg (29.0-33.0); MEAN CORPUSCULAR HGB CONC 31.4 g/dl (32.0-37.0); MEAN CORPUSCULAR VOLUME 91.2 fl (82.0-101.0); MEAN PLATELET VOLUME 11.2 fl (7.4-10.4); MONOCYTE # 0.8 10^3/ul (0.3-0.9); NEUTROPHIL # 9.8 10^3/ul (1.6-7.5); NEUTROPHILS % 74.7 % (39.0-77.0); PLATELET COUNT 220 10^3/UL (140-415); RED BLOOD COUNT 3.18 10^6/ul (4.70-6.10); RED CELL DISTRIBUTION WIDTH 13.8 % (11.5-14.5); WHITE BLOOD COUNT 13.1 10^3/ul (4.8-10.8)
[2016-08-24 06:12] LABS: POTASSIUM 4.1 mmol/L (3.5-5.1)
[2016-08-24 06:15] LABS: CREATININE 1.04 mg/dl (0.61-1.24)
[2016-08-24 06:16] LABS: CALCIUM 8.4 mg/dl (8.4-10.2)
[2016-08-24 07:32] LABS: PHOSPHORUS 2.7 mg/dl (2.5-4.9)
[2016-08-24] MEDS: CEFEPIME 1GM/50 ML (PMX) 50 ML IVPB SCH ×2 (08:11→20:56)
[2016-08-24] MEDS: DIVALPROEX (ER) 250 MG TAB PO SCH ×2 (08:11→20:57)
[2016-08-24] MEDS: SENNA TAB PO SCH ×2 (08:12→20:56)
[2016-08-24] MEDS: CYANOCOBALAMIN 500 MCG TAB PO SCH (08:12)
[2016-08-24] MEDS: FERROUS SULFATE (EC) 325 MG TAB PO SCH ×2 (08:12→20:57)
[2016-08-24] MEDS: ASPIRIN 81 MG TAB PO SCH (08:12)
[2016-08-24] MEDS: FINASTERIDE 5 MG TAB PO SCH (08:12)
[2016-08-24] MEDS: CARBIDOPA/LEVODOPA (25/100) TAB PO SCH ×4 (08:12→20:57)
[2016-08-24] MEDS: INSULIN ASPART [NOVOLOG] 3 ML PEN SC SCH ×3 (08:18→17:04)
[2016-08-24] MEDS: GABAPENTIN 400 MG CAP PO SCH ×2 (08:31→20:57)
[2016-08-24 08:51] VITALS: BP 145/66; RESP 22
[2016-08-24] MEDS ORDERED: INSULIN GLARGINE [LANtus] 3 ML PEN SC SCH (09:00)
[2016-08-24] MEDS: VANCOMYCIN 1 GM in NS 250 ML IVPB SCH (12:07)
[2016-08-24] MEDS: HYDROCODONE/APAP (5/325) TAB PO PRN (18:26)
--- NOTE | 2016-08-24 18:34 | PN ---
DATE: 08/24/2016 The patient was transferred to the medical/surgical floor. Accu-Cheks are being checked q.4h. Ceci mcdaniel's appetite has not been great and glucose level this morning was 77. I just went to see the pa phil and he appears to be doing okay. He is asking for food. The nurse checked the patient's suga r and it was in the 30s. D50 was just given and the patient is feeling better. I had a conversatio n with the patient and decision maker, power of assistant district attorney, Jaylan. We discussed the patient's care. U nfortunately, the patient pulled his Duarte out and there was some blood, but now patient is doing ok ay. I have reviewed the patient's insulin regimen by half at least. The patient at the nursing [facility] does take much higher dose of insulin. Patient's white count also improved to 13,000. The isabella guerrero is overall doing better. PHYSICAL EXAMINATION: VITAL SIGNS: Temperature 98, pulse 72, respirations 22, blood pressure 145/66, saturation 96%. GENERAL: The patient is in no acute distress. The patient is pale. CARDIOVASCULAR: S1 and S2, regular rate. LUNGS: Clear. ABDOMEN: Soft, nontender. EXTREMITIES: Right-sided weakness. This is old. LABORATORY DATA: Today shows a white count improved to 13.1, hemoglobin 9.1, hematocrit 29, platele ts 220, neutrophils 75%, lymphocytes 16%. Chemistry: Sodium 142, potassium 4.1, chloride 109, bica rbonate 26, BUN is 17, creatinine 1.04, glucose of 82. Again, kidney function improved as well. La st glucose level again the nurses said it was in the 30s. Before that at 1:15, it was 111. Patient likely did not eat sufficient unfortunately. MEDICATIONS: 1. Pepcid 20 mg at bedtime. 2. Vancomycin dose per pharmacy. 3. Lantus 30 units every day. I changed it. 4. Neurontin 100 b.i.d. 5. Insulin aspart 14 units q.a.c 6. Ativan 1 mg q.4h. p.r.n. 7. Hypoglycemia protocol. 8. Aspirin 81 mg daily. Patient remains on normal saline at 85 mL an hour. We can Hep-Lock his IV fluids. Accu-Chek q. 4h. 7. Vitamin B12 at 500 mcg daily. 8. Proscar 5 mg daily. 9. Depakote 250 b.i.d. 10. Zetia 10 mg at bedtime. 11. Ferrous sulfate 325 b.i.d. 12. Senna 1 tab b.i.d. 13. Flomax 0.4 at bedtime. 14. Trazodone 25 at bedtime. 15. Cefepime 1 gram q.12h. 16. Sinemet 25/100 q.i.d. 17. Vancomycin dose per pharmacy. 18. Zofran p.r.n. 19. Tylenol p.r.n. 20. [place] p.r.n. 21. Morphine p.r.n. 22. Ambien p.r.n. CULTURES: Both urine and blood culture all negative. MRSA of the nares negative. ASSESSMENT AND PLAN: This is a 66-year-old male with history of cerebrovascular accident with right hemiplegia, diabetes mellitus, hypertension, parkinsonism, chronic kidney disease who pre sented with diabetic ketoacidosis, leukocytosis, likely sepsis. 1. Diabetic ketoacidosis, resolved. Continue with subcu insulin. We will reduce the dose secondar y to hypoglycemia. Make sure patient is eating his meals. 2. Leukocytosis, possibly due to infectious process, etiology unclear. Remains on broad spectrum a ntibiotics, clinically improving. White count went down to 13. 3. Acute renal failure, resolved with hydration. Hep-Lock IV fluids. 4. Encephalopathy. The patient overall at baseline. 5. Observe. 6. Benign prostatic hypertrophy. Continue Proscar and Flomax. Duarte is now out. 7. Continue deep vein thrombosis prophylaxis and gastrointestinal prophylaxis. 8. Parkinsonism on Sinemet. 9. Continue stool softeners. 10. Diabetic neuropathy. Continue Neurontin. Monitor labs tomorrow and monitor with sugar overnig ht. If overall stable, the [facility] We will follow. Dictated By: JENNIFER BONILLA/GILBERT Conf#: [id number] DID#: [id number]
[2016-08-24 20:14] VITALS: BP_SYST 165; BP_SYST 179; BP_DIAS 73; BP_DIAS 87; RESP 20
[2016-08-24] MEDS: TAMSULOSIN (SR) 0.4 MG CAP PO SCH (20:57)
[2016-08-24] MEDS: EZETIMIBE 10 MG TAB PO SCH (20:57)
[2016-08-24] MEDS: FAMOTIDINE 20 MG TAB PO SCH (20:57)
[2016-08-24] MEDS: traZODone 50 MG TAB PO SCH (20:57)
[2016-08-24 21:30] VITALS: BP 135/82; PULSE 80; RESP 20
[2016-08-25] VITALS (7 sets, daily range): BP systolic 135–188; BP diastolic 71–84; PULSE 73–74; RESP 18–20
[2016-08-25] MEDS: VANCOMYCIN 1 GM in NS 250 ML IVPB SCH ×3 (00:26→23:52)
[2016-08-25] MEDS: ACCU-CHEK XX SCH ×6 (01:00→21:00)
[2016-08-25] MEDS: morphine 2 MG INJ IV PRN ×3 (05:13→20:15)
[2016-08-25 06:14] LABS: ADD SCAN DIFF NO
[2016-08-25 06:25] LABS: BASOPHILS % 0.4 % (0.0-2.0); EOSINOPHILS # 0.4 10^3/ul (0.0-0.5); HEMATOCRIT 30.8 % (42.0-52.0); HEMOGLOBIN 9.7 g/dl (14.0-18.0); LYMPHOCYTES # 1.3 10^3/ul (0.8-2.9); LYMPHOCYTES % 18.4 % (15.0-51.0); MEAN CORPUSCULAR HEMOGLOBIN 28.5 pg (29.0-33.0); MEAN CORPUSCULAR HGB CONC 31.5 g/dl (32.0-37.0); MEAN CORPUSCULAR VOLUME 90.6 fl (82.0-101.0); MEAN PLATELET VOLUME 11.1 fl (7.4-10.4); MONOCYTE # 0.5 10^3/ul (0.3-0.9); MONOCYTES % 6.2 % (0.0-11.0); NEUTROPHILS % 69.6 % (39.0-77.0); PLATELET COUNT 202 10^3/UL (140-415); RED CELL DISTRIBUTION WIDTH 13.5 % (11.5-14.5); WHITE BLOOD COUNT 7.2 10^3/ul (4.8-10.8)
[2016-08-25 06:50] LABS: CALCIUM 8.4 mg/dl (8.4-10.2); CREATININE 0.79 mg/dl (0.61-1.24); POTASSIUM 4.2 mmol/L (3.5-5.1)
[2016-08-25 07:10] LABS: MAGNESIUM 1.4 mg/dl (1.7-2.5); PHOSPHORUS 1.9 mg/dl (2.5-4.9)
[2016-08-25] MEDS: CARBIDOPA/LEVODOPA (25/100) TAB PO SCH ×4 (08:44→20:09)
[2016-08-25] MEDS: CYANOCOBALAMIN 500 MCG TAB PO SCH (08:44)
[2016-08-25] MEDS: FERROUS SULFATE (EC) 325 MG TAB PO SCH ×2 (08:44→20:09)
[2016-08-25] MEDS: SENNA TAB PO SCH ×2 (08:44→20:09)
[2016-08-25] MEDS: INSULIN ASPART [NOVOLOG] 3 ML PEN SC SCH ×4 (08:44→18:57)
[2016-08-25] MEDS: DIVALPROEX (ER) 250 MG TAB PO SCH ×2 (08:44→20:09)
[2016-08-25] MEDS: INSULIN GLARGINE [LANtus] 3 ML PEN SC SCH (08:45)
[2016-08-25] MEDS: CEFEPIME 1GM/50 ML (PMX) 50 ML IVPB SCH ×2 (08:46→20:10)
[2016-08-25] MEDS: ASPIRIN 81 MG TAB PO SCH (08:53)
[2016-08-25] MEDS: GABAPENTIN 400 MG CAP PO SCH ×2 (08:53→20:09)
[2016-08-25] MEDS: FINASTERIDE 5 MG TAB PO SCH (08:54)
--- NOTE | 2016-08-25 12:20 | PDOCDIS ---
Discharge Instructions CONDITION Patient Condition: Stable HOME CARE INSTRUCTIONS: Special Diet: carb conrtrolled ACTIVITY: Activity Restrictions: Slowly Increase Activity FOLLOW UP/APPOINTMENTS Appointments dc to shoshana aponte, see reconciliation, diet ADA 1800 BJORN, air mattress at [facility] JENNIFER PHILLIPS MD August 25, 2016 12:20
[2016-08-25] MEDS ORDERED: MAGNESIUM SULFATE 2 GM/50 ML 50 ML IVPB SCH (13:00)
--- NOTE | 2016-08-25 13:32 | DS ---
DATE OF ADMISSION: 08/22/2016 DATE OF DISCHARGE: 08/25/2016 REASON FOR ADMISSION: DKA, rule out sepsis. HOSPITAL COURSE: The patient is an unfortunate 66-year-old male with history of diabetes mellitus, CVA with right hemiplegia, psychiatric disorder, vascular dementia, hypertension, seizure disorder, vertigo, diabetic neuropathy, BPH, anemia, CKD, osteoarthritis, who currently resides at [facility]. The patient also has history of carotid stenosis and iron def iciency anemia. The patient presented to the hospital after I was informed the patient's sugar leve l was above 500 and he had episodes of nausea and vomiting. We sent him to the hospital and he was found to be in DKA. Bicarbonate was 12, sugar was 956 and patient in renal failure. Potassium was 6.0. The patient was started on broad-spectrum antibiotics for possible sepsis until further bonnie p is done. In addition, he was started on aggressive fluid hydration and insulin drip. He was admi tted to the intensive care unit in guarded condition. Electrolytes were checked frequently. Anion gap closed and I started him on subcutaneous insulin. Unfortunately, the patient was not eating muc h and he had an episode of hypoglycemia yesterday, but otherwise he is doing a fine. I encouraged h im to eat more. I did decrease his insulin regimen. White count normalized to 7.2 today and kidney function normalized. Sodium today is 139, potassium 4.2, chloride 109, bicarbonate 28, BUN is 10, creatinine 0.79, and glucose of 99. The patient to receive magnesium prior to discharge as the magn esium level is 1.4. During his stay, he had a PICC line insertion. Chest x-ray shows no evidence o f active cardiopulmonary disease. Cultures including urine culture, blood cultures, MRSA of the jesus es were negative, so I could not find a source of an infection. This may be just reactive in nature , but to be safe we will discharge him on oral Levaquin for a few more days. The patient will be di scharged back to [facility]. Noted redness in the sacral area documented stage II. He has incontinent dermatitis as well. DISCHARGE MEDICATIONS: The patient will be discharged with the following medications: 1. Accu-Chek before meals and at bedtime. 2. Tylenol p.r.n. for pain. 3. DuoNeb p.r.n. for shortness of breath. 4. Aspirin 81 mg daily. 5. Vitamin B12 500 mcg daily. 6. Depakote 250 mg b.i.d. 7. Zetia 10 mg at bedtime. 8. Pepcid 20 mg at night. 9. Ferrous sulfate 325 mg daily. 10. Proscar 5 mg daily. 11. Neurontin 400 b.i.d. 12. [place] 5/325 q.6h. p.r.n. for moderate pain. 13. Insulin aspart 8 units before meals. 14. Insulin Lantus 20 units daily. Previously was taking 32 units. 15. Sinemet 25/100 mg q.i.d. 16. Treatment of hypoglycemia as directed. 17. Zofran 4 mg p.o. q.4h. p.r.n. 18. Senna 1 tab b.i.d. 19. Flomax 0.4 at bedtime. 20. Trazodone 25 mg at bedtime. 21. Ambien 5 at bedtime p.r.n. for insomnia. 22. Bactroban ointment to the nares b.i.d., now we can discontinue it as MRSA is negative. FINAL DIAGNOSES: 1. Diabetic ketoacidosis. 2. Rule out sepsis. 3. Acute renal failure. 4. Prerenal azotemia. 5. Hyperkalemia. 6. Diabetes mellitus. 7. Cerebrovascular accident with right hemiplegia, chronic. 8. Hypertension. 9. Dyslipidemia. 10. Constipation. 11. Benign prostatic hypertrophy. 12. Anemia, combination of iron deficiency anemia and anemia of chronic disease as documented on ol d records. 13. Psychiatric disorder, on Depakote. 14. Stage II sacral wounds. 15. Incontinent dermatitis around the genital area. Creams are being applied by nursing staff. 16. Encephalopathy, improved, status post above treatment. 17. Parkinsonism. 18. Diabetic neuropathy. 19. Leukocytosis. Again, rule out sepsis, possible reactive in nature. The patient also will be g iven Levaquin 500 mg p.o. daily x5 days. CONDITION: The patient is discharged in fair condition. I spoke with Jaylan, who is the power of research attorney. He is aware of the patient's discharge planning. We will monitor him closely. Dictated By: JENNIFER BONILLA/GILBERT Conf#: [id number] DID#: [id number]
[2016-08-25] MEDS: EZETIMIBE 10 MG TAB PO SCH (20:09)
[2016-08-25] MEDS: FAMOTIDINE 20 MG TAB PO SCH (20:09)
[2016-08-25] MEDS: TAMSULOSIN (SR) 0.4 MG CAP PO SCH (20:09)
[2016-08-25] MEDS: traZODone 50 MG TAB PO SCH (20:09)
[2016-08-25] MEDS: HYDROCODONE/APAP (5/325) TAB PO PRN (22:00)
[2016-08-26] VITALS (9 sets, daily range): BP systolic 135–166; BP diastolic 55–80; PULSE 66–75; RESP 17–18
[2016-08-26] MEDS: ACCU-CHEK XX SCH ×4 (01:00→13:00)
[2016-08-26] MEDS: INSULIN ASPART [NOVOLOG] 3 ML PEN SC SCH ×2 (08:18→12:16)
[2016-08-26] MEDS: INSULIN GLARGINE [LANtus] 3 ML PEN SC SCH (08:20)
[2016-08-26] MEDS: CEFEPIME 1GM/50 ML (PMX) 50 ML IVPB SCH (08:20)
[2016-08-26] MEDS: FINASTERIDE 5 MG TAB PO SCH (09:51)
[2016-08-26] MEDS: DIVALPROEX (ER) 250 MG TAB PO SCH (09:51)
[2016-08-26] MEDS: GABAPENTIN 400 MG CAP PO SCH (09:51)
[2016-08-26] MEDS: CARBIDOPA/LEVODOPA (25/100) TAB PO SCH ×2 (09:52→13:34)
[2016-08-26] MEDS: ASPIRIN 81 MG TAB PO SCH (09:52)
[2016-08-26] MEDS: FERROUS SULFATE (EC) 325 MG TAB PO SCH (09:52)
[2016-08-26] MEDS: SENNA TAB PO SCH (09:52)
[2016-08-26] MEDS: CYANOCOBALAMIN 500 MCG TAB PO SCH (09:55)
[2016-08-26] MEDS: VANCOMYCIN 1 GM in NS 250 ML IVPB SCH (11:27)
[2016-08-26] MEDS: morphine 2 MG INJ IV PRN (11:28)
[2016-08-26] MEDS ORDERED: LOSARTAN 50 MG TAB PO SCH (14:30)
--- NOTE | 2016-08-26 15:00 | DS ---
DATE OF ADMISSION: 08/22/2016 DATE OF DISCHARGE: 08/26/2016 See my discharge summary from yesterday. The patient was supposed to be discharged, but 9 hours aft er was discharged, I was informed that the patient was not discharged and his blood pressure was keri vated. I instructed them to discharge him anyway as I can manage his blood pressure, but the patien t was not discharged. I came to see him just now. The patient appears to be comfortable with no co mplaints, eager to go back to his correction facility. PHYSICAL EXAMINATION: VITAL SIGNS: Temperature is 98, pulse is 67, respirations 17, blood pressure 151/71, saturation is 97% on room air. GENERAL: The patient is in no acute distress. The patient is pale. CARDIOVASCULAR: S1 and S2, regular rate and rhythm. LUNGS: Clear bilaterally. ABDOMEN: Soft, nontender. NEUROLOGIC: Right-sided weakness which is old. LABORATORY DATA: No new labs today. Glucose levels reported 271, 258, 179 and 116. MEDICATIONS: Reviewed. The patient still with left upper extremity PICC line. ASSESSMENT AND PLAN: This is an unfortunate 66-year-old male with history of cerebrovascu lar accident with right hemiplegia, diabetes mellitus, hypertension, parkinsonism, chronic kidney di sease, who presented with diabetic ketoacidosis, leukocytosis and possible sepsis. 1. Diabetic ketoacidosis, resolved. We will adjust his insulin as his diet varies. I will increas e his NovoLog to 10 units before meals, continue Lantus 20 units daily for now, and continue to adj ust it. We will put him on Tradjenta as well, 5 mg p.o. daily. 2. Leukocytosis. Discontinue IV antibiotics. Continue Levaquin for 5 more days for possible occul t infection. The patient presented initially with severe leukocytosis. 3. Acute renal failure, resolved, status post hydration. 4. Encephalopathy at baseline. 5. Benign prostatic hypertrophy, on Proscar and Flomax. 6. Parkinsonism, on Sinemet. 7. Continue stool softener. 8. Diabetic neuropathy. Continue Neurontin. 9. Hypertension. We will add losartan 50 and p.r.n. hydralazine. The patient can be discharged back to the correction facility. Orders were placed. Reconcilia tion meds were reviewed and adjusted. FINAL DIAGNOSES: See dictation from yesterday, all the same, no change. PICC line will be removed. The patient will be discharged. Dictated By: JENNIFER BONILLA/GILBERT Conf#: [id number] DID#: [id number]
== END 2016-08-26 16:23 | DRG 871 ==
LOC: E/R 04:40 → ICU 09:31 → PP2 08-23 16:40
PROVIDERS: ADMIT Internal Medicine; ATTEND Internal Medicine
PROC: 02HV33Z Insertion of Infusion Device into Superior Vena Cava, Percutaneous Approach (ICD-10-PCS; principal; 2016-08-22)
DX: A41.9 Sepsis, unspecified organism (principal); G92 Toxic encephalopathy; N17.9 Acute kidney failure, unspecified; E13.10 Other specified diabetes mellitus with ketoacidosis without coma; L89.152 Pressure ulcer of sacral region, stage 2; I69.951 Hemiplegia and hemiparesis following unspecified cerebrovascular disease affecting right dominant side; G20 Parkinson's disease; E13.40 Other specified diabetes mellitus with diabetic neuropathy, unspecified; N40.0 Benign prostatic hyperplasia without lower urinary tract symptoms; F01.50 Vascular dementia, unspecified severity, without behavioral disturbance, psychotic disturbance, mood disturbance, and anxiety; G40.909 Epilepsy, unspecified, not intractable, without status epilepticus; D50.9 Iron deficiency anemia, unspecified; I12.9 Hypertensive chronic kidney disease with stage 1 through stage 4 chronic kidney disease, or unspecified chronic kidney disease; N18.3 Chronic kidney disease, stage 3 (moderate); K59.00 Constipation, unspecified; D63.8 Anemia in other chronic diseases classified elsewhere
CPT/HCPCS: 36569; 71010; 76937; 80048; 80053; 80061; 81003; 82010; 82962; 83036; 83605; 83690; 83735; 84100; 84443; 84484; 85025; 87040; 87081; 87086; 93005; 96374; 96375; 96376; J0692; J1644; J1815; J2060; J2270; J2405; J3370; J3475; J3480; J7030; J7040; J7042; J7050

== ENCOUNTER 2017-01-13 16:13 | Emergency (ER) | payer MEDICARE, OTHER ==
[~2017-01-13] VITALS: Ht 182.9 cm; Wt 102.0 kg
[2017-01-13 16:47] VITALS: Ht 182.9 cm; Wt 102.0 kg
[2017-01-13] MEDS ORDERED: ONDANSETRON (ODT) 4 MG TAB ODT STA (18:18)
[2017-01-13] MEDS ORDERED: HYDROmorphONE 1 MG/ML SYG IM STA (18:18)
[2017-01-13] MEDS ORDERED: HYDR-902 PO (18:50)
[2017-01-13] MEDS ORDERED: NYST15OI12 TOP ×2 (18:50)
--- NOTE | 2017-01-13 18:53 | ERD ---
ER Documentation Chief Complaint Date/Time DATE: 01/13/17 TIME: 18:51 Chief Complaint pt is jackelin RA from [facility] wt c/o buttock pain x 1 month HPI This 58-year-old male complaining of pain in his butt crack and buttocks.. The patient states he has a rash and was wearing a diaper chronically and was always wet. He is on a cream right now it is not helping he says he has pain in his buttocks there is no bleeding no diarrhea no abdominal pain no constipation pain is described as sharp and burning, worse when he lays flat puts pressure on his buttocks better when he is on his side ROS All systems reviewed and are negative except as per history of present illness. Medications Home Meds Active Scripts Nystatin* (Nystatin* Oint) 15 Gm Oint, 1 APPLIC TOP TID, #1 TUB Prov:DEMARCUS AJ A. DO 01/13/17 Nystatin* (Nystatin* Oint) 15 Gm Oint, 1 APPLIC TOP BID, #1 TUB Prov:DEMARCUS AJ. DO 01/13/17 Hydrocodone/Acetaminophen ([place] 10-325 Tablet) 1 Each Tablet, 1 TAB PO Q6H Y for PAIN, #20 TAB Prov:DEMARCUS AJ DO 01/13/17 Reported Medications [Proctozone] No Conflict Check, QHS 05/18/16 Insulin Aspart (Novolog FlexPen) 100 Unit/1 Ml Insuln.pen, 10 UNITS SC WITH MEALS, EA 05/18/16 Mupirocin Calcium* (Bactroban* Nasal) 2% -1 Gram Oint...g., 1 APPLIC NASAL BID, TUB 05/18/16 Ondansetron Hcl* (Zofran*) 4 Mg Tab, 4 MG PO Q4H Y for NAUSEA AND OR VOMITING, TAB 05/18/16 Sennosides* (Senna Lax*) 8.6 Mg Tablet, 1 TAB PO BID, TAB 05/18/16 Tamsulosin Hcl* (Tamsulosin Hcl*) 0.4 Mg Cap.er.24h, 0.4 MG PO HS, CAP 05/18/16 Hydrocodone/Acetaminophen ([place] 10-325 Tablet) 1 Each Tablet, 1 EACH PO Q6 Y for PAIN, TAB 05/18/16 Ezetimibe* (Zetia*) 10 Mg Tablet, 10 MG PO HS, TAB 03/12/16 Trazodone Hcl* (Trazodone Hcl*) 50 Mg Tablet, 25 MG PO QHS, #30 TAB 03/12/16 Carbidopa-Levodopa* (Sinemet*) 25-100 Mg Tab, 1 TAB PO QID, TAB 03/12/16 Finasteride* (Proscar*) 5 Mg Tablet, 5 MG PO DAILY, TAB 03/12/16 Insulin Aspart* (Novolog Insulin Pen*) 100 Unit/Ml Soln, 0-10 SC .SLIDING SCALE AC, EA 03/12/16 Hydrocodone/Acetaminophen ([place] 10-325 Tablet) 1 Each Tablet, 1 EACH PO Q6 Y for SEVERE PAIN LEVEL 7-10, TAB 03/12/16 Gabapentin* (Neurontin*) 600 Mg Tablet, 400 MG PO BID, #60 TAB 03/12/16 Melatonin (Melatin) 3 Mg Tablet, 3 MG PO QHS, TAB 03/12/16 Furosemide* (Furosemide*) 40 Mg Tablet, 40 MG PO DAILY, TAB 03/12/16 Insulin Glargine* (Lantus*) 100 Unit/Ml Soln, 32 UNIT SC DAILY, #1 VIAL at bedtime 03/12/16 Ferrous Sulfate* (Ferrous Sulfate*) 325 Mg Tabec, 325 MG PO BID, TAB 03/12/16 Divalproex Sodium* (Depakote*) 250 Mg Tablet.dr, 250 MG PO BID, TAB 03/12/16 Cyanocobalamin* (Vitamin B12*) 500 Mcg Tab, 500 MCG PO DAILY, TAB 03/12/16 Aspirin* (Aspirin* Chew) 81 Mg Tab.chew, 81 MG PO DAILY, TAB.CHEW 03/12/16 Allergies Allergies: Coded Allergies: No Known Allergy (Unverified , 03/22/16) PMhx/Soc History of Surgery: Yes (KNEE SX) Anesthesia Reaction: No Hx 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 Disorder: Yes (CVA) Hx Respiratory Disorders: No Hx Cardiac Disorders: Yes (CAD) Hx Psychiatric Problems: No Hx Miscellaneous Medical Probl: Yes (VERTIGO, PSYCH DISORDER, VASCULAR DEMENTIA) Hx Alcohol Use: No Hx Substance Use: No Hx Tobacco Use: Yes Smoking Status: Unknown if ever smoked FmHx Family History: No coronary disease Physical Exam Vitals Vital Signs Date Time Temp Pulse Resp B/P Pulse Ox O2 Delivery O2 Flow Rate FiO2 01/13/17 16:47 98.3 62 16 149/62 98 Physical Exam Const: Well-developed, well-nourished Head: Atraumatic, normocephalic Eyes: Normal Conjunctiva, PERRLA, EOMI, normal sclera, no nystagmus ENT: Normal External Ears, Nose and Mouth, moist mucus membranes. Neck: Full range of motion. No meningismus, no lymphadenopathy. Resp: Clear to auscultation bilaterally, no wheezing, rhonchi, rales Cardio: Regular rate and rhythm, no murmurs, S1 S2 present Abd: Soft, non tender x 4, non distended. Normal bowel sounds, no guarding or rebound, no pulsitile abdominal masses or bruits Skin: No petechiae or rashes, no ecchymosis , no maculopapular rash, the buttocks has a classic appearance of diaper rash with shaved and cracked skin there is no palpable induration or abscess or indication for cellulitis Back: No midline or flank tenderness Ext: No cyanosis, or edema, FROM x 4, normal inspection, neurovascularly intact x 4 Neur: Awake and alert, STR 5/5 x 4, sensation intact x 4, no focal findings, cerebellum intact Psych: Normal Mood and Affect Results 24 hrs Current Medications Medications (Trade) Dose Ordered Sig/Vicky Route PRN Reason Start Time Stop Time Status Last Admin Dose Admin Hydromorphone HCl (Dilaudid) 1 mg ONCE STAT IM 01/13/17 18:18 01/13/17 18:19 DC 01/13/17 18:49 Ondansetron HCl (Zofran Odt) 4 mg ONCE STAT ODT 01/13/17 18:18 01/13/17 18:19 DC 01/13/17 18:49 Procedures/MDM No signs of cellulitis we will treat with nystatin and pain control. He is no longer wearing diapers and is wearing underwear now. He needs to keep a barrier there is so he does not have more wet skin Departure Diagnosis: Primary Impression: Tinea corporis Condition: Stable Patient Instructions: Tinea Corporis DEMARCUS AJ DO Jan 13, 2017 18:53
[2017-01-13 20:50] VITALS: BP 130/84; PULSE 84; RESP 18; TEMP 98.6
== END 2017-01-13 21:18 | disposition home or self-care (01) ==
LOC: E/R 16:13
DX: B35.4 Tinea corporis (principal); I25.10 Atherosclerotic heart disease of native coronary artery without angina pectoris; E11.9 Type 2 diabetes mellitus without complications; Z79.4 Long term (current) use of insulin; Z79.82 Long term (current) use of aspirin; Z87.891 Personal history of nicotine dependence
CPT/HCPCS: 96372; 99284; J1170

== ENCOUNTER 2017-08-16 18:48 | Inpatient (IN) | END 2017-08-25 18:48 | DRG 445 ==

== ENCOUNTER 2017-09-02 09:23 | Inpatient (IN) | END 2017-09-07 19:40 | DRG 871 ==

== ENCOUNTER 2018-02-19 08:59 | Inpatient (IN) | END 2018-02-25 18:55 | DRG 919 ==